=== PATIENT | female | born 1935 | race Caucasian/White ===

== ENCOUNTER → 2017-05-26 16:45 | Outpatient (CLI) | payer OTHER, SELFPAY ==
--- NOTE | 2017-05-26 16:53 | RAD_ITS ---
STUDY: X-RAY - RIGHT SHOULDER REASON FOR EXAM: Female, 82 years old. Fall down. TECHNIQUE: 4 view(s) of the shoulder. COMPARISON: February 02, 2014 FINDINGS: There is inferior and possibly anterior dislocation of the humeral head. There is degenerative arthrosis of the acromioclavicular joint without inferior osseous spur formation. Normal acromion. Normal humeral head and visualized proximal humerus. The soft tissue structures are unremarkable. Normal visualized pulmonary apex. RAD/Shoulder min 2 Views IMPRESSION: Inferior dislocation of the right humeral head. Electronically Signed: Niyah Genao MD at 18:16 EST Tel , Service support ,
== END ==
PROVIDERS: Family Provider Internal Medicine; PCP Internal Medicine; Visit Provider Internal Medicine
DX: M25.511 Pain in right shoulder (principal)
CPT/HCPCS: 73030

== ENCOUNTER 2017-05-26 19:16 | Emergency (ER) | payer OTHER, SELFPAY ==
[2017-05-26] VITALS (7 sets, daily range): BP systolic 109–199; BP diastolic 62–100; PULSE 64–73; RESP 12–24; TEMP 36.8; O2SAT 92–100; BMI 26.3
--- NOTE | 2017-05-26 20:13 | EKG12_ITS ---
Test Reason : UPPER EXTREMITY Blood Pressure : / mmHG Vent. Rate : 068 BPM Atrial Rate : 068 BPM P-R Int : 184 ms QRS Dur : 126 ms QT Int : 476 ms P-R-T Axes : 044 -11 -13 degrees QTc Int : 506 ms Sinus rhythm with occasional Premature ventricular complexes Left ventricular hypertrophy with QRS widening and repolarization abnormality Abnormal ECG Confirmed by ALANA MELISSA, FADIA ([id number]), news editor JAKOB DESAI ([id number]) on 05/29/2017 8:44:56 AM Referred By: TIKI Confirmed By:FADIA WARNER MD
--- NOTE | 2017-05-26 20:20 | ED.VISSUMM ---
- ER Visit Summary Date of Service: 05/26/17 Chief Complaint: [] Right shoulder pain History of Present Illness: The patient is a 82 F [] complaining of 2 weeks of chronic right shoulder pain and discomfort. Patient and the patient's adult daughter at the bedside report that they came in for an outpatient x-ray of the right shoulder and then were called back immediately to present to the emergency department for a right inferiorly dislocated shoulder. Patient reports she has been unable to use the shoulder for 2 weeks after she sustained a trauma and was evaluated for several other injuries but did not have her shoulder evaluated. Physical Examination: [] Right shoulder tenderness on palpation. Unable to move to the range of motion secondary to pain. Axillary nerve intact pre-and post procedure. Test Results: [] Right shoulder reduction x-rays show successful reduction of the right shoulder. Emergency Department Course and Treatment: [] Patient was provided fentanyl upon arrival for analgesia. Patient placed on the manager monitoring and placed on oxygen. Patient signed consent for procedural sedation for shoulder reduction. Patient was provided 3 mg intravenously of Versed and 50 mcg of fentanyl for procedural sedation. I used a traction countertraction maneuver with the help of nursing staff. I was able to successfully reduce the shoulder without difficulty. Patient tolerated the procedure well. She was observed for 1 hour after procedural sedation and was fully conscious and reported improvement in symptoms. Treatment Plan: [] Follow-up with orthopedic surgery. Disposition: [] Discharge, stable. Impression: [] Right shoulder dislocation Right shoulder reduction by ED physician Procedural sedation by ED physician This note was generated with Boxbee dictation software. It may contain incorrect words, spelling, and punctuation that were not noted in review of the chart prior to signing ED Disposition - Plan for ED Patient: Chief Complaint: Upper Extremity Injury Referrals: Kp Guerra MD [Primary Care Provider] -
--- NOTE | 2017-05-26 20:24 | ED.DCSUM_ITS ---
- ER Visit Summary Date of Service: 05/26/17 Chief Complaint: [] Right shoulder pain History of Present Illness: The patient is a 82 F [] complaining of 2 weeks of chronic right shoulder pain and discomfort. Patient and the patient's adult daughter at the bedside report that they came in for an outpatient x-ray of the right shoulder and then were called back immediately to present to the emergency department for a right inferiorly dislocated shoulder. Patient reports she has been unable to use the shoulder for 2 weeks after she sustained a trauma and was evaluated for several other injuries but did not have her shoulder evaluated. Physical Examination: [] Right shoulder tenderness on palpation. Unable to move to the range of motion secondary to pain. Axillary nerve intact pre-and post procedure. Test Results: [] Right shoulder reduction x-rays show successful reduction of the right shoulder. Emergency Department Course and Treatment: [] Patient was provided fentanyl upon arrival for analgesia. Patient placed on the electronic device monitor and placed on oxygen. Patient signed consent for procedural sedation for shoulder reduction. Patient was provided 3 mg intravenously of Versed and 50 mcg of fentanyl for procedural sedation. I used a traction countertraction maneuver with the help of nursing staff. I was able to successfully reduce the shoulder without difficulty. Patient tolerated the procedure well. She was observed for 1 hour after procedural sedation and was fully conscious and reported improvement in symptoms. Treatment Plan: [] Follow-up with orthopedic surgery. Disposition: [] Discharge, stable. Impression: [] Right shoulder dislocation Right shoulder reduction by ED physician Procedural sedation by ED physician This note was generated with AquaMost dictation software. It may contain incorrect words, spelling, and punctuation that were not noted in review of the chart prior to signing ED Disposition - Plan for ED Patient: Chief Complaint: Upper Extremity Injury Referrals: Kp Guerra MD [Primary Care Provider] -
[2017-05-26] MEDS: Ondansetron 4 MG/2 ML Vial IV (20:52)
[2017-05-26] MEDS: fentaNYL 100 MCG/2 ML Ampul 50 MCG IV ×2 (20:52→21:46)
[2017-05-26] MEDS: Midazolam 2 MG/2 ML Syringe 4 MG IV (21:48)
--- NOTE | 2017-05-26 22:20 | RAD_ITS ---
STUDY: X-RAY - RIGHT SHOULDER REASON FOR EXAM: Female, 82 years old. Post reduction. TECHNIQUE: 2 view(s) of the shoulder. COMPARISON: May 26, 2017 at 4:56 PM. FINDINGS: There has been successful reduction of the humerus since the prior examination. There is degenerative arthrosis of the acromioclavicular joint without inferior osseous spur formation. Normal acromion. Normal humeral head and visualized proximal humerus. The soft tissue structures are unremarkable. Normal visualized pulmonary apex. RAD/Shoulder min 2 Views IMPRESSION: Successful reduction of the humerus. Degenerative changes of the acromioclavicular joint. Electronically Signed: Niyah Genao MD at 23:17 EST Tel , Service support ,
--- NOTE | 2017-05-26 23:22 | ED.DEP ---
ED Disposition - Plan for ED Patient: Disposition: Home or Assisted Living Chief Complaint: Upper Extremity Injury Instructions: ED Dislocation Shoulder Redu Prescriptions: Hydrocodone/Acetaminophen [[place] 5-325 Tablet] 1 ea PO BID PRN PRN 7 Days #10 tab PRN Reason: Pain Referrals: Kp Guerra MD [Primary Care Provider] -
--- NOTE | 2017-05-26 23:26 | DCINST.ED_ITS ---
ED Disposition - Plan for ED Patient: Disposition: Home or Assisted Living Chief Complaint: Upper Extremity Injury Instructions: ED Dislocation Shoulder Redu Prescriptions: Hydrocodone/Acetaminophen [[place] 5-325 Tablet] 1 ea PO BID PRN PRN 7 Days #10 tab PRN Reason: Pain Referrals: Kp Guerra MD [Primary Care Provider] -
[2017-05-27 00:09] VITALS: BP 161/69; PULSE 67; RESP 23; O2SAT 95
== END 2017-05-27 00:10 | disposition home or self-care (01) ==
PROVIDERS: Emergency Provider Emergency Medicine; Family Provider Internal Medicine; PCP Internal Medicine
DX: S43.034A Inferior dislocation of right humerus, initial encounter (principal); W19.XXXA Unspecified fall, initial encounter; Y93.9 Activity, unspecified; Y92.9 Unspecified place or not applicable; K21.9 Gastro-esophageal reflux disease without esophagitis; E11.9 Type 2 diabetes mellitus without complications; I10 Essential (primary) hypertension; Z86.39 Personal history of other endocrine, nutritional and metabolic disease; I48.91 Unspecified atrial fibrillation; Z79.82 Long term (current) use of aspirin; Z79.01 Long term (current) use of anticoagulants; Z79.84 Long term (current) use of oral hypoglycemic drugs; Z79.899 Other long term (current) drug therapy
CPT/HCPCS: 23650; 73030; 93005; 96361; 96374; 96375; 96376; 99284; J7030; J7040; J2405

== ENCOUNTER → 2017-06-08 09:55 | Outpatient (CLI) | payer OTHER, SELFPAY ==
--- NOTE | 2017-06-08 09:59 | RAD_ITS ---
STUDY: X-RAY - RIGHT SHOULDER REASON FOR EXAM: Female, 82 years old. Pain following recent fall. TECHNIQUE: 2 view(s) of the shoulder. COMPARISON: Comparison is made with priors dated May 26, 2017. FINDINGS: Normal glenohumeral articulation. There is degenerative arthrosis of the acromioclavicular joint without inferior osseous spur formation. Normal acromion. Normal humeral head and visualized proximal humerus. The soft tissue structures are unremarkable. Normal visualized pulmonary apex. RAD/Shoulder min 2 Views IMPRESSION: There is no evidence of subluxation. Degenerative changes of the acromioclavicular joint. Electronically Signed: Chandra Davis MD at 14:21 EST Tel [phone], Service support ,
== END ==
PROVIDERS: Family Provider Internal Medicine; PCP Internal Medicine; Visit Provider Internal Medicine
DX: M25.511 Pain in right shoulder (principal)
CPT/HCPCS: 73030

== ENCOUNTER → 2017-07-10 11:47 | Outpatient (CLI) | payer OTHER, SELFPAY ==
--- NOTE | 2017-07-10 11:50 | RAD_ITS ---
STUDY: X-RAY - RIGHT SHOULDER REASON FOR EXAM: Female, 82 years old. Follow-up previous dislocation. TECHNIQUE: 4 view(s) of the shoulder. COMPARISON: 05/26/2017, 06/08/2017. FINDINGS: It appears there was a dislocation back in 05/26/2017, and none more recently. No acute fracture or dislocation. Normal glenohumeral articulation. Normal acromioclavicular joint. Normal acromion. There is demineralization of the humerus and visualized osseous structures. The soft tissue structures are unremarkable. Normal visualized pulmonary apex. RAD/Shoulder min 2 Views IMPRESSION: No acute fracture or dislocation. No subluxation. Demineralization. Electronically Signed: Tahir Raya MD at 8:48 EDT , Service support ,
== END ==
PROVIDERS: Family Provider Internal Medicine; PCP Internal Medicine; Visit Provider Internal Medicine
DX: S43.004A Unspecified dislocation of right shoulder joint, initial encounter (principal); X58.XXXA Exposure to other specified factors, initial encounter
CPT/HCPCS: 73030

== ENCOUNTER 2017-08-31 08:36 | Emergency (ER) | payer OTHER, SELFPAY ==
[2017-08-31 08:37] VITALS: PULSE 80; RESP 20; O2SAT 93
[2017-08-31 08:38] VITALS: BP 153/73; PULSE 79; RESP 16; TEMP 37.2; O2SAT 88; BMI 28.8
--- NOTE | 2017-08-31 08:40 | EKG12_ITS ---
Test Reason : GI BLEED Blood Pressure : / mmHG Vent. Rate : 078 BPM Atrial Rate : 078 BPM P-R Int : 192 ms QRS Dur : 112 ms QT Int : 458 ms P-R-T Axes : 024 023 -01 degrees QTc Int : 522 ms Normal sinus rhythm Incomplete left bundle branch block ST & T wave abnormality, consider anterolateral ischemia Prolonged QT Abnormal ECG Confirmed by ALANA MELISSA, FADIA ([id number]), editorial director JAKOB DESAI ([id number]) on 09/04/2017 1:54:37 PM Referred By: ROJELIO Confirmed By:FADIA WARNER MD
--- NOTE | 2017-08-31 08:48 | ED.VISSUMM ---
- ER Visit Summary Date of Service: 08/31/17 Chief Complaint: Coffee ground/bloody emesis this morning and hypoxia History of Present Illness: The patient is a 82 F who has multiple medical problems. She is on Xarelto. She states she has vomited a couple times this morning. There was blood and coffee grounds noted by patient and EMS. They reported she was unable to stand to transfer to cot. She became lightheaded. BM was yesterday and patient states stool was brown. She has history of GERD. There is no history of ulcers or GI bleed. She has not not seen a gastroneurologist recently. She states her last colonoscopy was a while ago. She reports cough for the past 2-3 days and the cough has been productive for the past 24 hours. She is a non-smoker. She states she has never smoked. She denies fever, chills night sweats. She denies any ocular, auditory or visual symptoms. She denies rhinorrhea, congestion or postnasal drainage. She denies chest pain. She did complain of mild shortness of breath. She denies any abdominal pain or back pain. She denies dysuria, frequency, urgency or hematuria. She does report bruising easily. She denies rash. There is no history of trauma. She does take an aspirin a day. Please read written note for complete detail. Physical Examination: Patient appears pale. Vital signs are remarkable for a pulse ox of 80% on room air. She is not febrile. She is not tachycardic. This may be secondary to the medication she is taking to control her paroxysmal A. fib. Head is atraumatic nor cephalic. Pupils equal round reactive. Extra muscle intact. Sclerae anicteric. Conjunctive is pale. There is blood noted on the lower lip with coffee-ground material on her clothing. Trachea is midline. There is no carotid bruit. Heart is regular with distant heart tones. Mild rales noted left base. Abdomen soft nontender. There is no palpable cell mass. She is alert oriented with a nonfocal neurologic exam. Lower extremity exam is no asymmetry, discoloration, leg vein distention, palpable cords test on the distribution of deep venous system. Test Results: EKG reveals a sinus rhythm rate of 78 with a left anterior fascicular block. There is minimal nonspecific ST-T wave changes. Chest x-ray reveals proper position of the OG. There is a significant pneumonia on the left which is new compared to x-ray dated May 06, 2017. White count is normal. There is a shift with 84 segs no bands. H&H 11.3 and 34.4. Her hemoglobin on May 06 was 11.3. BMP is marked for glucose 138 and creatinine 1.41. Lactate elevated 2.6. This most likely represents a metabolic acidosis secondary to the GI bleed and hypoxia. She does not have any sirs criteria. INR is 1.4. PTT is 39.9. Emergency Department Course and Treatment: Since patient is hypoxic chest x-ray was obtained to evaluate for pneumonia. Since she is on Xarelto PT/PTT was obtained. OG was ordered to determine if she is still actively bleeding. Orthostatics were not ordered since paramedics stated she became lightheaded and was unable to stand. Patient was informed she will need to be admitted. Based on her presentation she will either need PCU stepdown versus ICU. Will need to contact Dr. Matt Calvo to determine if you will see her in consultation for her GI bleed since there is no rn examiner communications electrician supervisor. Case was discussed with Dr. Calvo. He recommended transfer since she has bright red blood per OG and on Xarelto. 80 mg of Protonix IV push was ordered and a continuous drip. Family requested transfer to [facility]. Spoke with the transfer nurse. She was made aware patient's history, physical and results to this point. We will discuss use of [employer] with flight attendant/inflight manager. Since there is a significant infiltrate on the left and patient has not been hospitalized last 90 days will treat for Commit acquired pneumonia with Rocephin and azithromycin IV piggyback. Treatment Plan: Transfer to tertiary facility with GI coverage for active upper GI bleed Disposition: Transfer to [facility] Impression: 1. Upper GI bleed 2. Respiratory failure with hypoxia 3. Community-acquired pneumonia, left 4. Orthostatic hypotension 5. High risk medication (Xarelto induced coagulopathy) 6. Lactic acidosis 7. Hyperglycemia and type II diabetic 8. History of hypertension 9. History of nonischemic cardiomyopathy This note was generated with crealyticsation software. It may contain incorrect words, spelling, and punctuation that were not noted in review of the chart prior to signing ED Disposition - Plan for ED Patient: Chief Complaint: GI Bleed Referrals: Kp Guerra MD [Primary Care Provider] -
[2017-08-31 09:13] LABS: Absolute Lymphocyte Count 0.47 X10^3/ul (0.83-4.51); Absolute Neutrophil Count 3.9 X10^3/uL (2.0-7.7); Basophil# 0.01 X10^3/uL; Basophil% 0.2 % (0-1); Eosinophil# 0.01 X10^3/uL; Eosinophils% 0.2 % (0-5); Hematocrit 34.4 % (37-47); Hemoglobin 11.3 g/dl (12.0-15.0); Lymphocyte # 0.47 X10^3/ul (4.0); Mean Corp Hgb Conc 32.8 g/gl (32-36); Mean Corpuscular Hgb 29.1 pg (27.0-32.0); Mean Corpuscular Volume 88.7 fL (81-99); Mean Platelet Vol. 10.6 fl (6.2-12.0); Monocyte# 0.28 X10^3/uL; Monocyte% 5.9 % (0-10); Neutrophil # 3.94 X10^3/uL (2.7-7.7); Neutrophil % 83.7 % (47-70); Platelet Count 138 K/mm3 (150-450); RBC Distribution Width CV 13.9 % (11.6-14.6); RBC Distribution Width SD 44.8 fl (35.1-43.9); Red Blood Count 3.88 M/mm3 (4.2-5.4); White Blood Count 4.7 K/mm3 (4.4-11.0)
[2017-08-31 09:14] LABS: Differential Indicated SCAN CRITERIA MET; POSITIVE COUNT NO; POSITIVE DIFFERENTIAL YES; POSITIVE MORPHOLOGY NO
--- NOTE | 2017-08-31 09:18 | RAD_ITS ---
STUDY: X-RAY CHEST REASON FOR EXAM: Female, 82 years old. Hypoxia. Productive cough. TECHNIQUE: Single AP portable view of the chest. COMPARISON: Comparison is made with prior study dated October 04, 2017. FINDINGS: EKG electrodes are seen. An orogastric tube is seen with the tip in the body of the stomach. Dense infiltration in the left upper lobe and left lower lobe. The right lung is clear. There is no demonstrated pleural abnormality. Normal size heart. Normal mediastinum and joyce. Normal visualized pulmonary arteries. There is atherosclerotic calcification of the aortic arch with tortuosity. Normal visualized thoracic spine. Normal visualized ribs, clavicles, and shoulders. There is no demonstrated abnormality of the visualized soft tissue structures of the upper abdomen. RAD/Chest 1 View (Portable) IMPRESSION: Dense infiltration in the left upper and left lower lobes. Radiographic follow-up is recommended. Electronically Signed: Chandra Davis MD at 9:54 EDT Tel [phone], Service support ,
[2017-08-31 09:29] LABS: Anion Gap 10 (5-15); BUN 16 mg/dL (7-18); BUN/Creat Ratio 11.3 RATIO (10-20); Calcium,Total 8.9 mg/dL (8.5-10.1); Chloride 102 mmol/L (98-107); Creatinine, Serum 1.41 mg/dL (0.55-1.02); EST Glomerular Filtration Rate 38 mL/min (>60); Est Glom Filt Rate - Afr Amer 46 mL/min (>60); Estimated Creatinine Clearance 24.75 ml/min; Glucose 138 mg/dL (74-106); Potassium 4.2 mmol/L (3.5-5.1); Sodium Level 138 mmol/L (136-145)
[2017-08-31 09:30] LABS: Lactic Acid 2.6 mmol/L (0.4-2.0)
[2017-08-31 09:32] LABS: Differential Comment SCANNED
--- NOTE | 2017-08-31 09:34 | NURSING ---
CALLED [facility] FOR TRANSFER
[2017-08-31 09:36] LABS: International Normalized Ratio 1.4; Prothrombin Time (Protime)PT. 16.7 SECONDS (11.7-14.9)
[2017-08-31 09:37] LABS: Partial Thromboplast Time 39.9 Seconds (24.1-36.2)
[2017-08-31 09:40] VITALS: BP 148/75; PULSE 73; RESP 20; O2SAT 97
[2017-08-31 10:06] VITALS: BP 161/75; PULSE 73; RESP 20; O2SAT 96
[2017-08-31] MEDS: Ceftriaxone 1 GM/50 ML BAG IV (10:15)
--- NOTE | 2017-08-31 10:58 | CASEMGMT ---
Social Work Note In to complete initial assessment as pt is targeted as an anticipated admission. Introduced self and role at [facility]. The pt reports to live with her spouse in a one-story home with 2 entry steps and not handrails. DME consists of a walker, cane, shower chair, toilet riser and grab bars. DME obtained from [facility]. Confirms that her PCP is Dr. Guerra and her preferred pharmacy is [facility] in [place]. Pt reports to have advanced directives and her HCPOA is her daughter, Chana. Does not anticipate any discharge needs at this time. Pt to be transferred to [place]. Maribel Mills, MECHANICAL SYSTEMS ENGINEER, INFORMATION MANAGEMENT SPECIALIST
[2017-08-31 11:01] VITALS: BP 152/61; PULSE 71; RESP 22; TEMP 36.8; O2SAT 97
--- NOTE | 2017-08-31 11:03 | NURSING ---
[facility] ETA IS FROM [place]
[2017-08-31 13:00] LABS: Reflex Lactate? Y
== END 2017-08-31 12:04 | disposition short-term general hospital (02) ==
LOC: ED 09:02
PROVIDERS: Emergency Provider Emergency Medicine; Family Provider Internal Medicine; PCP Internal Medicine
DX: K92.0 Hematemesis (principal); J96.91 Respiratory failure, unspecified with hypoxia; J18.9 Pneumonia, unspecified organism; I95.1 Orthostatic hypotension; R79.1 Abnormal coagulation profile; Z79.01 Long term (current) use of anticoagulants; E87.2 Acidosis; E11.65 Type 2 diabetes mellitus with hyperglycemia; I42.8 Other cardiomyopathies; K21.9 Gastro-esophageal reflux disease without esophagitis; I48.0 Paroxysmal atrial fibrillation; I44.4 Left anterior fascicular block; E11.22 Type 2 diabetes mellitus with diabetic chronic kidney disease; I13.2 Hypertensive heart and chronic kidney disease with heart failure and with stage 5 chronic kidney disease, or end stage renal disease; N18.6 End stage renal disease; Z86.39 Personal history of other endocrine, nutritional and metabolic disease; Z79.82 Long term (current) use of aspirin; Z79.84 Long term (current) use of oral hypoglycemic drugs; Z79.899 Other long term (current) drug therapy
CPT/HCPCS: 71045; 80048; 83605; 85025; 85610; 85730; 87040; 93005; 96361; 96365; 96367; 96368; 99285; J7030; J7040; A4216; J3490

== ENCOUNTER → 2017-10-05 09:43 | Outpatient (CLI) | payer OTHER, SELFPAY ==
[2017-10-05 12:24] LABS: Absolute Lymphocyte Count 1.72 X10^3/ul (0.83-4.51); Absolute Neutrophil Count 2.9 X10^3/uL (2.0-7.7); Basophil# 0.02 X10^3/uL; Basophil% 0.4 % (0-1); Eosinophil# 0.19 X10^3/uL; Eosinophils% 3.6 % (0-5); Hemoglobin 9.6 g/dl (12.0-15.0); Lymphocyte # 1.72 X10^3/ul (4.0); Mean Corpuscular Hgb 27.3 pg (27.0-32.0); Mean Corpuscular Volume 88.1 fL (81-99); Mean Platelet Vol. 11.3 fl (6.2-12.0); Monocyte# 0.38 X10^3/uL; Monocyte% 7.3 % (0-10); Neutrophil # 2.89 X10^3/uL (2.7-7.7); Neutrophil % 55.5 % (47-70); Platelet Count 166 K/mm3 (150-450); RBC Distribution Width CV 14.5 % (11.6-14.6); RBC Distribution Width SD 45.6 fl (35.1-43.9); Red Blood Count 3.52 M/mm3 (4.2-5.4); White Blood Count 5.2 K/mm3 (4.4-11.0)
[2017-10-05 12:28] LABS: POSITIVE COUNT NO; POSITIVE DIFFERENTIAL NO; POSITIVE MORPHOLOGY NO
[2017-10-05 12:31] LABS: Anion Gap 10 (5-15); BUN 11 mg/dL (7-18); Calcium,Total 9.3 mg/dL (8.5-10.1); Chloride 104 mmol/L (98-107); Creatinine, Serum 1.22 mg/dL (0.55-1.02); EST Glomerular Filtration Rate 45 mL/min (>60); Est Glom Filt Rate - Afr Amer 54 mL/min (>60); Glucose 134 mg/dL (74-106); Potassium 4.8 mmol/L (3.5-5.1); Sodium Level 140 mmol/L (136-145)
== END ==
PROVIDERS: Family Provider Internal Medicine; PCP Internal Medicine; Visit Provider Internal Medicine
DX: J18.9 Pneumonia, unspecified organism (principal)
CPT/HCPCS: 36415; 80048; 85025

== ENCOUNTER → 2017-10-19 10:16 | Outpatient (CLI) | payer OTHER, SELFPAY ==
--- NOTE | 2017-10-19 10:19 | RAD_ITS ---
STUDY: X-RAY CHEST REASON FOR EXAM: Female, 82 years old. Cough TECHNIQUE: Frontal and lateral views of the chest were obtained. COMPARISON: August 31, 2017 FINDINGS: The lungs are underaerated. There are no focal airspace opacities. There is no demonstrated pleural abnormality. There is moderate enlargement of the cardiac silhouette. The mediastinum and hilar regions are unremarkable. Normal visualized pulmonary arteries. There is atherosclerotic calcification of the thoracic aorta. There are diffuse degenerative changes of the visualized spine. The visualized ribs, clavicles, and shoulders are unremarkable. There is no demonstrated abnormality of the visualized upper abdomen. RAD/Chest PA and Lateral IMPRESSION: There is no evidence of focal consolidation or pleural effusion. There has been resolution of the previously seen left lung pneumonia. There is stable moderate enlargement of the cardiac silhouette without edema. Electronically Signed: Betsy Garcia MD at 0:08 EDT Tel Direct: [phone], Service support ,
== END ==
PROVIDERS: Family Provider Internal Medicine; PCP Internal Medicine; Visit Provider Internal Medicine
DX: J18.9 Pneumonia, unspecified organism (principal)
CPT/HCPCS: 71046

== ENCOUNTER → 2017-11-02 09:58 | Outpatient (CLI) | payer OTHER, SELFPAY ==
--- NOTE | 2017-11-02 10:00 | RAD_ITS ---
STUDY: X-RAY CHEST REASON FOR EXAM: Female, 82 years old. Cough and shortness of breath. TECHNIQUE: PA and lateral views of the chest. COMPARISON: Comparison is made with prior study dated October 19, 2017. FINDINGS: Small right pleural effusion with underlying right basilar atelectasis and/or infiltration. Blunting of the left costophrenic angle. There is moderate cardiac enlargement. Normal mediastinum and joyce. Normal visualized pulmonary arteries. There is atherosclerotic calcification of the aortic arch with tortuosity. There is demineralization of the osseous structures. Normal visualized ribs, clavicles, and shoulders. There is no demonstrated abnormality of the visualized soft tissue structures of the upper abdomen. RAD/Chest PA and Lateral IMPRESSION: Small right pleural effusion with underlying infiltration and/or atelectasis. Blunting of left costophrenic angle. Electronically Signed: Chandra Davis MD at 10:28 EDT Tel [phone], Service support ,
== END ==
PROVIDERS: Family Provider Internal Medicine; PCP Internal Medicine; Visit Provider Physician Assistant Surgical
DX: R05 Cough (principal)
CPT/HCPCS: 71046

== ENCOUNTER → 2018-01-07 10:38 | Outpatient (CLI) | payer OTHER, SELFPAY ==
[2018-01-07 12:19] LABS: Absolute Lymphocyte Count 1.37 X10^3/ul (0.83-4.51); Absolute Neutrophil Count 3.2 X10^3/uL (2.0-7.7); Basophil# 0.02 X10^3/uL; Basophil% 0.4 % (0-1); Eosinophil# 0.14 X10^3/uL; Eosinophils% 2.7 % (0-5); Hematocrit 36.9 % (37-47); Lymphocyte # 1.37 X10^3/ul (4.0); Lymphocyte % 26.5 % (19-41); Mean Corp Hgb Conc 32.5 g/gl (32-36); Mean Corpuscular Hgb 28.4 pg (27.0-32.0); Mean Corpuscular Volume 87.4 fL (81-99); Mean Platelet Vol. 11.5 fl (6.2-12.0); Monocyte# 0.46 X10^3/uL; Monocyte% 8.9 % (0-10); Neutrophil # 3.17 X10^3/uL (2.7-7.7); Neutrophil % 61.3 % (47-70); Platelet Count 152 K/mm3 (150-450); RBC Distribution Width CV 17.7 % (11.6-14.6); RBC Distribution Width SD 56.8 fl (35.1-43.9); Red Blood Count 4.22 M/mm3 (4.2-5.4); White Blood Count 5.2 K/mm3 (4.4-11.0)
[2018-01-07 12:25] LABS: POSITIVE COUNT NO; POSITIVE DIFFERENTIAL NO; POSITIVE MORPHOLOGY NO
[2018-01-07 12:26] LABS: Anion Gap 8 (5-15); BUN 20 mg/dL (7-18); BUN/Creat Ratio 17.4 RATIO (10-20); Calcium,Total 9.3 mg/dL (8.5-10.1); Chloride 104 mmol/L (98-107); Creatinine, Serum 1.15 mg/dL (0.55-1.02); EST Glomerular Filtration Rate 48 mL/min (>60); Est Glom Filt Rate - Afr Amer 58 mL/min (>60); Glucose 133 mg/dL (74-106); Potassium 4.6 mmol/L (3.5-5.1); Sodium Level 138 mmol/L (136-145)
[2018-01-07 12:33] LABS: Hemoglobin A1c 6.3 % (4.2-6.3)
== END ==
PROVIDERS: Family Provider Internal Medicine; PCP Internal Medicine; Visit Provider Internal Medicine
DX: E11.22 Type 2 diabetes mellitus with diabetic chronic kidney disease (principal); N18.3 Chronic kidney disease, stage 3 (moderate); D64.9 Anemia, unspecified
CPT/HCPCS: 36415; 80048; 83036; 85025

== ENCOUNTER → 2018-06-11 10:46 | Outpatient (CLI) | payer OTHER, SELFPAY ==
[2018-06-11 10:03] VITALS: BMI 28.8
[2018-06-11 12:12] LABS: Absolute Lymphocyte Count 1.65 X10^3/ul (0.83-4.51); Absolute Neutrophil Count 3.8 X10^3/uL (2.0-7.7); Basophil# 0.02 X10^3/uL; Basophil% 0.3 % (0-1); Eosinophil# 0.13 X10^3/uL; Eosinophils% 2.2 % (0-5); Hematocrit 37.4 % (37-47); Hemoglobin 12.2 g/dl (12.0-15.0); Lymphocyte # 1.65 X10^3/ul (4.0); Lymphocyte % 27.4 % (19-41); Mean Corp Hgb Conc 32.6 g/gl (32-36); Mean Corpuscular Hgb 30.5 pg (27.0-32.0); Mean Corpuscular Volume 93.5 fL (81-99); Monocyte# 0.44 X10^3/uL; Monocyte% 7.3 % (0-10); Neutrophil # 3.77 X10^3/uL (2.7-7.7); Neutrophil % 62.6 % (47-70); POSITIVE COUNT NO; POSITIVE DIFFERENTIAL NO; POSITIVE MORPHOLOGY NO; Platelet Count 129 K/mm3 (150-450); RBC Distribution Width CV 13.5 % (11.6-14.6); RBC Distribution Width SD 45.1 fl (35.1-43.9)
[2018-06-11 12:27] LABS: Anion Gap 9 (5-15); BUN 16 mg/dL (7-18); BUN/Creat Ratio 12.4 RATIO (10-20); Calcium,Total 9.5 mg/dL (8.5-10.1); Chloride 105 mmol/L (98-107); Creatinine, Serum 1.29 mg/dL (0.55-1.02); EST Glomerular Filtration Rate 42 mL/min (>60); Est Glom Filt Rate - Afr Amer 51 mL/min (>60); Glucose 168 mg/dL (74-106); Sodium Level 141 mmol/L (136-145)
== END ==
PROVIDERS: Family Provider Internal Medicine; PCP Internal Medicine; Visit Provider Internal Medicine
DX: E11.9 Type 2 diabetes mellitus without complications (principal); D64.9 Anemia, unspecified; I10 Essential (primary) hypertension
CPT/HCPCS: 36415; 80048; 83036; 85025

== ENCOUNTER → 2019-03-11 10:40 | Outpatient (CLI) | payer OTHER, SELFPAY ==
[2019-03-11 10:08] VITALS: BMI 29.4
[2019-03-11 12:34] LABS: Absolute Lymphocyte Count 1.65 X10^3/uL (0.83-4.51); Basophil# 0.03 X10^3/uL; Basophil% 0.6 % (0-1); Eosinophil# 0.21 X10^3/uL; Hematocrit 42.2 % (37-47); Hemoglobin 13.6 g/dL (12.0-15.0); Lymphocyte # 1.65 X10^3/ul (4.0); Lymphocyte % 31.5 % (19-41); Mean Corp Hgb Conc 32.2 g/dL (32-36); Mean Corpuscular Hgb 29.3 pg (27.0-32.0); Mean Corpuscular Volume 90.9 fL (81-99); Mean Platelet Vol. 11.3 fl (6.2-12.0); Monocyte# 0.32 X10^3/uL; Monocyte% 6.1 % (0-10); NRBC Flagged by Analyzer 0 % (0-5); Neutrophil # 3.01 X10^3/uL (2.7-7.7); Neutrophil % 57.6 % (47-70); Platelet Count 165 K/mm3 (150-450); RBC Distribution Width CV 13.3 % (11.6-14.6); RBC Distribution Width SD 45.1 fl (35.1-43.9); Red Blood Count 4.64 M/mm3 (4.2-5.4); White Blood Count 5.2 K/mm3 (4.4-11.0)
[2019-03-11 12:40] LABS: Anion Gap 7 (5-15); BUN 15 mg/dL (7-18); BUN/Creat Ratio 12.3 RATIO (10-20); Calcium,Total 9.5 mg/dL (8.5-10.1); Chloride 107 mmol/L (98-107); Creatinine, Serum 1.22 mg/dL (0.55-1.02); EST Glomerular Filtration Rate 45 mL/min (>60); Est Glom Filt Rate - Afr Amer 54 mL/min (>60); Glucose 177 mg/dL (74-106); Potassium 4.9 mmol/L (3.5-5.1); Sodium Level 138 mmol/L (136-145)
== END ==
PROVIDERS: Family Provider Internal Medicine; PCP Internal Medicine; Visit Provider Internal Medicine
DX: E11.9 Type 2 diabetes mellitus without complications (principal); I10 Essential (primary) hypertension; D64.9 Anemia, unspecified
CPT/HCPCS: 36415; 80048; 85025

== ENCOUNTER → 2019-03-28 09:45 | Outpatient (CLI) | payer OTHER, SELFPAY ==
[2019-03-28 09:32] VITALS: BMI 29.4
--- NOTE | 2019-03-28 09:47 | RAD_ITS ---
STUDY: X-RAY - LEFT WRIST REASON FOR EXAM: Female, 84 years old. Left wrist pain radiating to thumb TECHNIQUE: 3 view(s) of the wrist were obtained. COMPARISON: None. FINDINGS: There is demineralization of the radius and ulna. Normal radiocarpal articulation. Normal distal radioulnar articulation. Normal carpal bones. There are degenerative changes with joint space narrowing of the greater multangular navicular joint. There are moderately severe degenerative changes with joint space narrowing of the first metacarpal greater multangular joint. Normal second through fifth carpometacarpal articulations. Normal visualized metacarpal bones. There is calcification in the region of the triradiate cartilage most typically associated with calcium pyrophosphate deposition disease. Arterial calcifications are noted in the distal forearm and wrist. RAD/Wrist min 3 Views IMPRESSION: Generalized osteopenia. Degenerative changes as detailed above. Electronically Signed: Jarrod Garcia MD at 18:36 EST , Service support ,
== END ==
PROVIDERS: Family Provider Internal Medicine; PCP Internal Medicine; Referring Provider Orthopaedic Surgery; Visit Provider Orthopaedic Surgery
DX: M25.532 Pain in left wrist (principal)
CPT/HCPCS: 73110

== ENCOUNTER → 2019-12-23 10:29 | Outpatient (CLI) | payer OTHER, SELFPAY ==
[2019-12-23 10:03] VITALS: BMI 29.4
[2019-12-23 11:58] LABS: Absolute Lymphocyte Count 1.66 X10^3/uL (0.83-4.51); Absolute Neutrophil Count 5.5 X10^3/uL (2.0-7.7); Basophil# 0.03 X10^3/uL; Basophil% 0.4 % (0-1); Eosinophil# 0.12 X10^3/uL; Eosinophils% 1.6 % (0-5); Hematocrit 36.8 % (37-47); Hemoglobin 12.3 g/dL (12.0-15.0); Lymphocyte # 1.66 X10^3/ul (4.0); Lymphocyte % 21.6 % (19-41); Mean Corp Hgb Conc 33.4 g/dL (32-36); Mean Corpuscular Hgb 30.8 pg (27.0-32.0); Mean Platelet Vol. 11.4 fl (6.2-12.0); Monocyte# 0.37 X10^3/uL; Monocyte% 4.8 % (0-10); NRBC Flagged by Analyzer 0 % (0-5); Neutrophil # 5.45 X10^3/uL (2.7-7.7); Neutrophil % 71.1 % (47-70); Platelet Count 194 K/mm3 (150-450); RBC Distribution Width CV 13.2 % (11.6-14.6); RBC Distribution Width SD 43.8 fl (35.1-43.9); White Blood Count 7.7 K/mm3 (4.4-11.0)
[2019-12-23 12:23] LABS: ALB/GLOB Ratio 0.9 RATIO (0.9-2.4); AST(SGOT) 23 U/L (15-37); Alanine Aminotransfer ALT/SGPT 19 U/L (13-56); Albumin, Serum 4.1 g/dL (3.2-5.0); Alkaline Phosphatase 106 U/L (45-117); Anion Gap 6 (5-15); BUN 18 mg/dL (7-18); Calcium,Total 8.9 mg/dL (8.5-10.1); Chloride 104 mmol/L (98-107); Cholesterol 232 mg/dL (200); Creatinine, Serum 1.29 mg/dL (0.55-1.02); EST Glomerular Filtration Rate 42 mL/min (>60); Est Glom Filt Rate - Afr Amer 51 mL/min (>60); Globulin 4.4 g/dL (2.2-4.2); Glucose 136 mg/dL (74-106); High Density Lipoprotein 49 mg/dL; Potassium 4.7 mmol/L (3.5-5.1); Protein, Total 8.5 g/dL (6.4-8.2); Sodium Level 136 mmol/L (136-145); T4 Free Direct 1.15 ng/dL (0.76-1.46); Thyroid Stim Hormone (TSH) 3.27 uIU/mL (0.358-3.74); Triglycerides 225 mg/dL; Very Low Density Lipoprotein 45 mg/dL (5-40)
== END ==
PROVIDERS: PCP Internal Medicine; Referring Provider Internal Medicine; Visit Provider Internal Medicine
DX: I10 Essential (primary) hypertension (principal); Z13.29 Encounter for screening for other suspected endocrine disorder; E78.5 Hyperlipidemia, unspecified
CPT/HCPCS: 36415; 80053; 80061; 84439; 84443; 85025

== ENCOUNTER → 2019-12-26 09:28 | Outpatient (CLI) | payer OTHER, SELFPAY ==
[2019-12-23 10:03] VITALS: BMI 29.4
--- NOTE | 2019-12-26 09:30 | RAD_ITS ---
STUDY: X-RAY CHEST REASON FOR EXAM: Female, 84 years old. AFIB, WEAKNESS TECHNIQUE: PA and lateral views of the chest. COMPARISON: Comparison is made with prior study dated 11/02/2017. FINDINGS: There is elevation of the right hemidiaphragm. There is no demonstrated pleural abnormality. Normal size heart. Calcified bilateral hilar lymph nodes. Normal visualized pulmonary arteries. There is atherosclerotic calcification of the aortic arch with tortuosity. Normal visualized thoracic spine. Normal visualized ribs, clavicles, and shoulders. There is no demonstrated abnormality of the visualized soft tissue structures of the upper abdomen. RAD/Chest PA and Lateral IMPRESSION: No acute abnormality is seen. Electronically Signed: Chandra Davis, at 12:39 EDT , Service support ,
== END ==
PROVIDERS: PCP Internal Medicine; Referring Provider Internal Medicine; Visit Provider Internal Medicine
DX: I48.91 Unspecified atrial fibrillation (principal)
CPT/HCPCS: 71046

== ENCOUNTER → 2020-06-22 10:31 | Outpatient (CLI) | payer OTHER, SELFPAY ==
[2019-12-23 10:03] VITALS: BMI 29.4
[2020-06-22 12:13] LABS: Absolute Lymphocyte Count 2.35 X10^3/uL (0.83-4.51); Absolute Neutrophil Count 3.7 X10^3/uL (2.0-7.7); Basophil# 0.03 X10^3/uL; Basophil% 0.5 % (0-1); Eosinophil# 0.17 X10^3/uL; Eosinophils% 2.6 % (0-5); Hematocrit 40.3 % (37-47); Lymphocyte # 2.35 X10^3/ul (4.0); Lymphocyte % 35.8 % (19-41); Mean Corp Hgb Conc 32.3 g/dL (32-36); Mean Corpuscular Hgb 29.7 pg (27.0-32.0); Mean Corpuscular Volume 92.2 fL (81-99); Mean Platelet Vol. 11.3 fl (6.2-12.0); Monocyte# 0.31 X10^3/uL; Monocyte% 4.7 % (0-10); NRBC Flagged by Analyzer 0 % (0-5); Neutrophil % 56.2 % (47-70); Platelet Count 175 K/mm3 (150-450); RBC Distribution Width CV 13.4 % (11.6-14.6); RBC Distribution Width SD 45.4 fl (35.1-43.9); Red Blood Count 4.37 M/mm3 (4.2-5.4); White Blood Count 6.6 K/mm3 (4.4-11.0)
[2020-06-22 12:39] LABS: Anion Gap 8 (5-15); BUN 15 mg/dL (7-18); BUN/Creat Ratio 12.2 RATIO (10-20); Calcium,Total 9.6 mg/dL (8.5-10.1); Chloride 105 mmol/L (98-107); Creatinine, Serum 1.23 mg/dL (0.55-1.02); EST Glomerular Filtration Rate 44 mL/min (>60); Est Glom Filt Rate - Afr Amer 53 mL/min (>60); Glucose 157 mg/dL (74-106); Potassium 4.7 mmol/L (3.5-5.1); Sodium Level 137 mmol/L (136-145)
== END ==
PROVIDERS: PCP Internal Medicine; Visit Provider Internal Medicine
DX: I48.91 Unspecified atrial fibrillation (principal); I10 Essential (primary) hypertension
CPT/HCPCS: 36415; 80048; 85025

== ENCOUNTER → 2020-12-14 10:09 | Outpatient (CLI) | payer OTHER, SELFPAY ==
--- NOTE | 2020-12-14 10:11 | RAD_ITS ---
STUDY: X-RAY CHEST REASON FOR EXAM: Female, 85 years old. Cough TECHNIQUE: PA and lateral views of the chest. COMPARISON: Comparison is made with prior examination of 12/26/2019. FINDINGS: There is elevation of the right hemidiaphragm. The lungs are clear. There is no demonstrated pleural abnormality. Normal size heart. Calcified bilateral hilar lymph nodes. Normal visualized pulmonary arteries. There is atherosclerotic calcification of the aortic arch with tortuosity. There is demineralization of the osseous structures. Normal visualized ribs, clavicles, and shoulders. There is no demonstrated abnormality of the visualized soft tissue structures of the upper abdomen. RAD/Chest PA and Lateral IMPRESSION: Stable elevation of the right hemidiaphragm. The lungs are clear. Electronically Signed: Chandra Davis MD at 10:17 EDT , Service support ,
== END ==
PROVIDERS: PCP Internal Medicine; Referring Provider Nurse Practitioner Family; Visit Provider Nurse Practitioner Family
DX: R05 Cough (principal)
CPT/HCPCS: 71046

== ENCOUNTER → 2021-01-03 10:33 | Outpatient (CLI) | payer OTHER, SELFPAY ==
[2021-01-03 12:08] LABS: Absolute Lymphocyte Count 1.82 X10^3/uL (0.83-4.51); Absolute Neutrophil Count 3.3 X10^3/uL (2.0-7.7); Basophil# 0.03 X10^3/uL; Basophil% 0.5 % (0-1); Eosinophil# 0.15 X10^3/uL; Eosinophils% 2.7 % (0-5); Hematocrit 38.1 % (37-47); Hemoglobin 12.5 g/dL (12.0-15.0); Lymphocyte # 1.82 X10^3/ul (0.83-4.51); Lymphocyte % 32.6 % (19-41); Mean Corp Hgb Conc 32.8 g/dL (32-36); Mean Corpuscular Hgb 30.2 pg (27.0-32.0); Monocyte% 5.4 % (0-10); NRBC Flagged by Analyzer 0 % (0-5); Neutrophil # 3.26 X10^3/uL (2.7-7.7); Neutrophil % 58.4 % (47-70); Platelet Count 166 K/mm3 (150-450); RBC Distribution Width CV 13.6 % (11.6-14.6); Red Blood Count 4.14 M/mm3 (4.2-5.4); White Blood Count 5.6 K/mm3 (4.4-11.0)
[2021-01-03 12:19] LABS: AST(SGOT) 20 U/L (15-37); Alanine Aminotransfer ALT/SGPT 16 U/L (13-56); Albumin, Serum 4.1 g/dL (3.2-5.0); Alkaline Phosphatase 91 U/L (45-117); Anion Gap 8 (5-15); BUN 16 mg/dL (7-18); BUN/Creat Ratio 13.6 RATIO (10-20); Calcium,Total 9.1 mg/dL (8.5-10.1); Chloride 104 mmol/L (98-107); Cholesterol 256 mg/dL (200); Creatinine, Serum 1.18 mg/dL (0.55-1.02); EST Glomerular Filtration Rate 46 mL/min (>60); Est Glom Filt Rate - Afr Amer 56 mL/min (>60); Globulin 4.2 g/dL (2.2-4.2); Glucose 148 mg/dL (74-106); High Density Lipoprotein 48 mg/dL; Potassium 4.6 mmol/L (3.5-5.1); Protein, Total 8.3 g/dL (6.4-8.2); Sodium Level 136 mmol/L (136-145); Triglycerides 229 mg/dL; Very Low Density Lipoprotein 46 mg/dL (5-40)
== END ==
PROVIDERS: PCP Internal Medicine; Visit Provider Internal Medicine
DX: E78.5 Hyperlipidemia, unspecified (principal); I10 Essential (primary) hypertension; I48.91 Unspecified atrial fibrillation
CPT/HCPCS: 36415; 80053; 80061; 85025

== ENCOUNTER 2021-07-05 10:20 | Outpatient (CLI) | payer OTHER, SELFPAY ==
[2021-07-05 12:05] LABS: Absolute Lymphocyte Count 2.07 X10^3/uL (0.83-4.51); Absolute Neutrophil Count 3.4 X10^3/uL (2.0-7.7); Basophil# 0.03 X10^3/uL; Basophil% 0.5 % (0-1); Eosinophil# 0.15 X10^3/uL; Eosinophils% 2.5 % (0-5); Hematocrit 38.3 % (37-47); Hemoglobin 12.3 g/dL (12.0-15.0); Lymphocyte # 2.07 X10^3/ul (0.83-4.51); Lymphocyte % 34.4 % (19-41); Mean Corp Hgb Conc 32.1 g/dL (32-36); Mean Corpuscular Hgb 29.5 pg (27.0-32.0); Mean Corpuscular Volume 91.8 fL (81-99); Mean Platelet Vol. 10.7 fl (6.2-12.0); Monocyte# 0.34 X10^3/uL; Monocyte% 5.7 % (0-10); NRBC Flagged by Analyzer 0 % (0-5); Neutrophil % 56.6 % (47-70); Platelet Count 163 K/mm3 (150-450); RBC Distribution Width CV 13.3 % (11.6-14.6); RBC Distribution Width SD 45.1 fl (35.1-43.9); Red Blood Count 4.17 M/mm3 (4.2-5.4)
[2021-07-05 12:25] LABS: Anion Gap 5 (5-15); BUN 14 mg/dL (7-18); BUN/Creat Ratio 9.9 RATIO (10-20); Calcium,Total 9.9 mg/dL (8.5-10.1); Chloride 106 mmol/L (98-107); Creatinine, Serum 1.41 mg/dL (0.55-1.02); EST Glomerular Filtration Rate 38 mL/min (>60); Est Glom Filt Rate - Afr Amer 46 mL/min (>60); Glucose 161 mg/dL (74-106); Potassium 4.5 mmol/L (3.5-5.1); Sodium Level 137 mmol/L (136-145)
== END 2021-07-05 23:59 | disposition home or self-care (01) ==
LOC: BIMLAB 10:21
PROVIDERS: PCP Internal Medicine; Referring Provider Internal Medicine; Visit Provider Internal Medicine
DX: I10 Essential (primary) hypertension (principal)
CPT/HCPCS: 36415; 80048; 85025

== ENCOUNTER 2021-08-30 10:22 | Emergency (ER) | payer OTHER, SELFPAY ==
[2021-08-30 10:23] VITALS: BP 128/78; PULSE 73; RESP 14; TEMP 36.2; O2SAT 100; BMI 28.1
--- NOTE | 2021-08-30 10:37 | EKG12_ITS ---
Test Reason : Blood Pressure : / mmHG Vent. Rate : 071 BPM Atrial Rate : 071 BPM P-R Int : 216 ms QRS Dur : 096 ms QT Int : 398 ms P-R-T Axes : 044 -09 -14 degrees QTc Int : 432 ms Sinus rhythm with 1st degree A-V block ST & T wave abnormality, consider anterior ischemia Abnormal ECG Confirmed by ALANA MELISSA, FADIA ([id number]), editorial manager JORGE KELLEY ([id number]) on 08/31/2021 12:52:23 PM Referred By: SWATHI Confirmed By:FADIA WARNER MD
--- NOTE | 2021-08-30 10:37 | CT_ITS ---
EXAM: CT HEAD WITHOUT INTRAVENOUS CONTRAST CLINICAL INDICATION: trauma TECHNIQUE: Multiple axial images were obtained of the head without intravenous contrast. This CT exam was performed using one or more of the following dose reduction techniques: automated exposure control, adjustment of the mA and/or kV according to patient size, and/or use of iterative reconstruction technique. This report was created using [employer] report generation technology. COMPARISON: 05/06/2017 FINDINGS: BRAIN AND EXTRA-AXIAL SPACES: Areas of diminished white matter density noted within both cerebral hemispheres suggestive of chronic microvascular change. No intra- or extra-axial hemorrhage. No evidence of acute infarct. No intracranial mass or mass effect. There is preservation of the solorzano/white matter interface. Posterior fossa structures are unremarkable. Ventricles are appropriate for age. No hydrocephalus. Basal cisterns are patent. BONES/JOINTS: Unremarkable. No discrete lytic or blastic abnormalities. SINUSES: Unremarkable as visualized. Clear. MASTOID AIR CELLS: Unremarkable. Clear. ORBITS: Visualized globes, extraocular muscles, optic nerves and retrobulbar fat appear unremarkable. CT/Brain/Head without Contrast IMPRESSION: 1. No acute abnormality. 2. Stable senescent changes. Electronically Signed: Guanako Rashid MD at 11:28 EDT ,
--- NOTE | 2021-08-30 10:37 | CT_ITS ---
EXAM: CT LUMBAR SPINE WITHOUT INTRAVENOUS CONTRAST CLINICAL INDICATION: trauma -- Include sacrum please TECHNIQUE: Helically acquired images were obtained of the lumbar spine without intravenous contrast. 2D reformats were reviewed. This CT exam was performed using one or more of the following dose reduction techniques: automated exposure control, adjustment of the mA and/or kV according to patient size, and/or use of iterative reconstruction technique. This report was created using [employer] report [employer] technology. COMPARISON: None. FINDINGS: VERTEBRAE: Mild superior endplate deformity of the T12 vertebral body suggestive of remote injury. Mild anterior listhesis of L4 and L5 related to the underlying degeneration. SACRUM/COCCYX: Cortical defect noted to involve the midportion of the sacrum on the sagittal reformatted image consistent with a nondisplaced acute fracture. DISCS/SPINAL CANAL/NEURAL FORAMINA: Prominent disc space narrowing, endplate sclerosis and vertebral body hypertrophy noted at T12-L1. Prominent disc degeneration also noted at L4-5 and L5-S1. Multilevel facet arthropathy. Tiyv-jy-bwjiejjl spinal stenosis noted at the L3-4 level related to facet arthropathy and posterior ligamentous redundancy. Similar changes are noted at the L4-5 level. VASCULATURE: Visualized abdominal aorta is not dilated. LYMPH NODES: Unremarkable. No retroperitoneal adenopathy. CT/Spine Lumbar without Contrast IMPRESSION: 1. Acute nondisplaced fracture of the sacrum. 2. Multilevel disc and facet degenerative change. 3. L3-4 and L4-5 spinal stenosis related to facet arthropathy and posterior ligamentous redundancy. Electronically Signed: Guanako Rashid MD at 11:35 EDT ,
--- NOTE | 2021-08-30 11:22 | EX.ED.GENINJ ---
HPI History of Present Illness Chief Complaint: Fall Informant: patient and family Narrative Narrative: Patient has 2 issues today. Primary complaint per patient is that she had a mechanical slip and fall in the bathroom today. She was reaching to get something into the closet next of the tub. She missed stepped and fell landing her buttocks on and in the tub. She did not hit her head. She did not lose consciousness. This was a mechanical fall and not syncope. She has pain really down in the count of the sacral area. But she is able to get up and walk around. She got out of the tub. She talked to her daughter. She walked out of the house to her car and then from the car in here. No other injury. The patient's daughter also states that she has noted occasional confusion over the last 5 or so days. Sometimes her mother is fine sometimes she seems a little bit more forgetful regarding medications and eating. Her mother does live alone and independently. She is generally very good. At this moment she is doing well. The daughter is not sure if this is just a process of aging or might be something acute. There is been no focal numbness tingling weakness. No visual disturbance. Sometimes the speech seems a little bit slow but there have been no difficulties with understanding or processing. Of note, the patient is already on Xarelto for history of atrial fibrillation. [facility] Medical History Arthritis Atrial fibrillation Atrial flutter Chronic systolic heart failure Cough Difficulty balancing Fatigue Flu vaccine need GERD (gastroesophageal reflux disease) HLD (hyperlipidemia) HTN (hypertension) Limb weakness Non-ischemic cardiomyopathy Orthostatic hypotension Paroxysmal atrial fibrillation Secondary pulmonary arterial hypertension SOB (shortness of breath) T2DM (type 2 diabetes mellitus) Home Medications amiodarone 200 mg tablet 200 mg PO DAILY tab 02/12/18 [History Last Taken Unknown] blood sugar diagnostic #100 ea 09/09/19 [Rx Last Taken Unknown] blood-glucose meter #1 ea 09/09/19 [Rx Last Taken Unknown] lancets 28 gauge #200 ea 09/09/19 [Rx Last Taken Unknown] losartan 50 mg tablet 50 mg PO DAILY #90 tab 08/30/20 [Rx Last Taken Unknown] ergocalciferol (vitamin D2) 1,250 mcg (50,000 unit) capsule 50,000 unit PO QMONTH #7 cap 09/27/20 [Rx Last Taken Unknown] metformin 1,000 mg tablet,extended release 24hr 1,000 mg PO QHS #90 tab 09/27/20 [Rx Last Taken Unknown] ferrous sulfate 325 mg (65 mg iron) tablet 325 mg PO QDAY #90 tab 12/10/20 [Rx Last Taken Unknown] sertraline 50 mg tablet 50 mg PO DAILY #90 tab 02/22/21 [Rx Last Taken Unknown] amlodipine 10 mg tablet 10 mg PO DAILY #90 tab 03/22/21 [Rx Last Taken Unknown] carvedilol 12.5 mg tablet 12.5 mg PO BID #180 tab 03/22/21 [Rx Last Taken Unknown] rivaroxaban 15 mg tablet 15 mg PO DAILY@0600 #90 tab 03/31/21 [Rx Last Taken Unknown] lansoprazole 30 mg capsule,delayed release 30 mg PO DAILY #90 cap 06/24/21 [Rx Last Taken Unknown] tramadol [Ultram] 50 mg PO Q6H PRN 3 Days #10 tab 08/30/21 [Rx Last Taken Unknown] Allergy/AdvReac Type Severity Reaction Status Date / Time No Known Allergies Allergy Verified 08/30/21 10:22 Family History Mother CVA (cerebral vascular accident) Father Myocardial infarction suspected [place] Sister Diabetes Heart disease Brother Cancer prostate Social History Smoking Status: Never smoker alcohol intake: never substance use type: does not use what type of physical activity do you participate in: none ROS ROS ED Constitutional Constitutional ED: Denies chills, fever(s) or sweats Eyes Eyes: Denies blurry vision or change in vision ENT ENT ED: Denies rhinorrhea or sore throat Cardiovascular Cardiovascular: Denies chest pain or palpitations Respiratory/Chest Respiratory/Chest: Denies cough, dyspnea or sputum Gastrointestinal Gastrointestinal: Denies abdominal pain, diarrhea, nausea or vomiting Genitourinary Genitourinary ED: Denies dysuria or hematuria Musculoskeletal Musculoskeletal: Reports other Details: Buttock pain. See history of present illness. ; Denies arthralgias, myalgias or neck pain Integumentary Denies abscess or rash Neurologic Neurologic: Reports other Details: See history of present illness ; Denies headache(s), paresthesias or weakness Psychiatric Psychiatric: Denies depression Endocrine Endocrinology: Denies polydipsia or polyuria Hematologic/Lymphatic Hematologic/Lymphatic: Reports easy bleeding and easy bruising Allergic/Immunologic Allergic/Immunologic ED: Denies urticaria EXAM Physical Exam Const Vital Signs: 08/30/21 10:23 08/30/21 11:54 08/30/21 12:21 Temperature 97.2 F L Temperature Source Temporal Pulse Rate 73 70 Respiratory Rate 14 16 Respiratory Effort Normal Non-Labored Respiratory Depth Normal Respiratory Pattern Normal Blood Pressure 128/78 H 144/79 H Blood Pressure Mean 94 100 Pulse Ox 100 95 98 Oxygen Delivery Method Room Air Room Air Room Air Positive well nourished and well developed General Appearance ED: well developed and NAD HEENT HEENT Narrative: No sign of any head trauma. atraumatic Eyes EOMs intact bilaterally Neck full ROM General: Negative for tenderness Chest Wall inspection of chest normal Resp normal respiratory effort and clear to auscultation bilaterally Cardio regular rhythm Cardio Narrative: Patient has a history of atrial fibrillation but sounds regular at this time. Rate: regular rate GI normal to inspection, nondistended, normoactive bowel sounds, non-tender and non-distended Palpation: soft Back/Spine normal to inspection Back/Spine Narrative: I am not seeing any bruising or contusions at this time. There is no tenderness in the upper spine. As you get toward the lower lumbar area there is soreness but not focal tenderness. She also has soreness down around the sacrum but no contusion yet visible. Extremity normal to inspection and full ROM General Extremety ED: Negative for deformity or tenderness General Extremity: Negative for deformity Neuro oriented x3 Neuro Narrative: NIH is 0. Sensorium / Orientation: alert Psych mental status grossly normal Skin no rashes or lesions noted MDM MDM MDM Narrative Medical decision making narrative: Patient's blood work shows some mild baseline anemia. Sodium was minimally low at 135 but not causing her symptoms. Creatinine was really at her baseline at 1.22. Urine was clean without signs of infection. It was minimally cloudy but there were 0 white cells no leukocyte esterase and no nitrites. CAT scan of her head showed chronic but no acute changes. CAT scan of her LS spine showed a small sacral fracture that was really nondisplaced. It was visible on sagittal images mostly in the anterior wall. She has no bowel bladder or neurologic symptoms. She is ambulatory. We discussed options. She has had some mild confusion but there is no sign of focal deficit. This could be due to fluctuations in blood sugar which they think she has been having but it is good right now. This certainly could be small TIA but she is already on Xarelto. They do not want to come in the hospital. She is at her baseline now. She is doing well. She has good help. She wants to go home. We will write for a small dose of tramadol mostly to take at night. She will try Tylenol and ice and rest during the day. If she has any neurologic symptoms, bowel bladder dysfunction, pain or any other concerns she should return. Lab Data Attestation: I reviewed the patient's lab results. Labs: Laboratory Results - last 24 hr 08/30/21 08/30/21 08/30/21 11:22 11:22 11:56 WBC 8.3 RBC 3.87 L Hgb 11.8 L Hct 34.9 L MCV 90.2 MCH 30.5 MCHC 33.8 RDW Std Deviation 43.8 RDW Coeff of [place] 13.2 Plt Count 165 MPV 10.6 Immature Gran % (Auto) 0.400 Neut % (Auto) 73.0 H Lymph % (Auto) 19.9 [place] % (Auto) 5.5 Eos % (Auto) 0.8 Baso % (Auto) 0.4 Absolute Neuts (auto) 6.1 Absolute Lymphs (auto) 1.65 Nucleated RBC % 0 Sodium 135 L Potassium 4.4 Chloride 102 Carbon Dioxide 24.0 Anion Gap 9 BUN 17 Creatinine 1.22 H Estim Creat Clear Calc 26.66 Est GFR (MDRD) Af Amer 54 L Est GFR (MDRD) Non-Af 45 L BUN/Creatinine Ratio 13.9 Glucose 150 H Calcium 9.1 Troponin I High Sens 9 Urine Color Yellow Urine Clarity Sl. Cloudy Urine pH 6.0 Ur Specific [place] 1.010 Urine Protein Negative Urine Glucose (UA) Normal Urine Ketones Negative Urine Occult Blood Negative Urine Nitrite Negative Urine Bilirubin Negative Urine Urobilinogen Normal Ur Leukocyte Esterase Negative Urine RBC 0 SEEN Urine WBC 0 SEEN Ur Squamous Epith Cells 0-5 SEEN Urine Bacteria 0 SEEN Urine Mucus 0 SEEN Radiography Diagnostic Testing: Clinical Impression(s) from Imaging Studies Brain CT 08/30/21 10:37 IMPRESSION: 1. No acute abnormality. 2. Stable senescent changes. Electronically Signed: Guanako Rashid MD at 11:28 EDT , Lumbar Spine CT 08/30/21 10:37 IMPRESSION: 1. Acute nondisplaced fracture of the sacrum. 2. Multilevel disc and facet degenerative change. 3. L3-4 and L4-5 spinal stenosis related to facet arthropathy and posterior ligamentous redundancy. Electronically Signed: Guanako Rashid MD at 11:35 EDT , EKG Initial EKG: Comments: EKG done for history of A. fib. EKG shows sinus rhythm with rate of 71. First-degree AV block. No ectopy. Discharge Plan Triage Chief Complaint: Fall ED Provider: Elfego Wong Dx/Rx/DC Orders Clinical Impression: Closed sacral fracture, Fall at home Instructions: Anatomy of the Sacroiliac Joint, ED Fall Prevention Prescriptions: New tramadol [Ultram] 50 mg tablet 50 mg PO Q6H PRN (Reason: pain) 3 Days Qty: 10 RF: 0 No Action amiodarone 200 mg tablet 200 mg PO DAILY RF: 0 (DME) lancets [FreeStyle Lancets] 28 gauge misc See Rx Instructions .ROUTE .MEDSUPPLY Qty: 200 RF: 3 (DME) blood-glucose meter [FreeStyle Lite Meter] Kit See Rx Instructions .ROUTE .MEDSUPPLY Qty: 1 RF: 0 (DME) blood sugar diagnostic [FreeStyle Lite Strips] Strip See Rx Instructions .ROUTE .MEDSUPPLY Qty: 100 RF: 3 ferrous sulfate 325 mg (65 mg iron) tablet 325 mg PO QDAY Qty: 90 RF: 3 losartan 50 mg tablet 50 mg PO DAILY Qty: 90 RF: 3 ergocalciferol (vitamin D2) 1,250 mcg (50,000 unit) capsule 50,000 unit PO QMONTH Qty: 7 RF: 1 metformin ER 1,000 mg tablet,extended release 24hr 1,000 mg tablet extended release 24hr 1,000 mg PO QHS Qty: 90 RF: 3 sertraline 50 mg tablet 50 mg PO DAILY Qty: 90 RF: 1 carvedilol 12.5 mg tablet 12.5 mg PO BID Qty: 180 RF: 3 amlodipine 10 mg tablet 10 mg PO DAILY Qty: 90 RF: 3 rivaroxaban 15 mg tablet 15 mg PO DAILY@0600 Qty: 90 RF: 3 lansoprazole [Prevacid] 30 mg capsule,delayed release(DR/EC) 30 mg PO DAILY Qty: 90 RF: 3 Primary Care Provider: Kp Guerra Referrals: Kp Guerra MD [Primary Care Provider] - 3-5 Days Disposition Disposition: Home, Self Care
[2021-08-30 11:34] LABS: Absolute Lymphocyte Count 1.65 X10^3/uL (0.83-4.51); Absolute Neutrophil Count 6.1 X10^3/uL (2.0-7.7); Basophil# 0.03 X10^3/uL; Basophil% 0.4 % (0-1); Eosinophil# 0.07 X10^3/uL; Eosinophils% 0.8 % (0-5); Hematocrit 34.9 % (37-47); Hemoglobin 11.8 g/dL (12.0-15.0); Lymphocyte # 1.65 X10^3/ul (0.83-4.51); Lymphocyte % 19.9 % (19-41); Mean Corp Hgb Conc 33.8 g/dL (32-36); Mean Corpuscular Hgb 30.5 pg (27.0-32.0); Mean Corpuscular Volume 90.2 fL (81-99); Mean Platelet Vol. 10.6 fl (6.2-12.0); Monocyte# 0.46 X10^3/uL; Monocyte% 5.5 % (0-10); NRBC Flagged by Analyzer 0 % (0-5); Neutrophil # 6.07 X10^3/uL (2.7-7.7); Platelet Count 165 K/mm3 (150-450); RBC Distribution Width CV 13.2 % (11.6-14.6); RBC Distribution Width SD 43.8 fl (35.1-43.9); Red Blood Count 3.87 M/mm3 (4.2-5.4); White Blood Count 8.3 K/mm3 (4.4-11.0)
[2021-08-30 11:51] LABS: Anion Gap 9 (5-15); BUN 17 mg/dL (7-18); BUN/Creat Ratio 13.9 RATIO (10-20); Calcium,Total 9.1 mg/dL (8.5-10.1); Chloride 102 mmol/L (98-107); Creatinine, Serum 1.22 mg/dL (0.55-1.02); EST Glomerular Filtration Rate 45 mL/min (>60); Est Glom Filt Rate - Afr Amer 54 mL/min (>60); Estimated Creatinine Clearance 26.66 ml/min; Glucose 150 mg/dL (74-106); Potassium 4.4 mmol/L (3.5-5.1); Sodium Level 135 mmol/L (136-145); Troponin-I HS 9 pg/mL (3.0-54.0)
[2021-08-30 11:54] VITALS: O2SAT 95
[2021-08-30 12:06] LABS: Bacteria 0 SEEN /hpf (None Seen); Mucous, Urine 0 SEEN /hpf (<or=2+); Red Blood Cells-Urine 0 SEEN /hpf (0-5); White Blood Cells 0 SEEN /hpf (0-5)
[2021-08-30 12:20] LABS: Color, Urine Yellow (Yellow); Glucose, Dipstick Normal (Normal); Ketone-Dipstick Negative (Negative); Leukocyte Esterase-Dipstick Negative /ul (Negative); Nitrite-Dipstick Negative (Negative); Occult Blood-Urine Negative /ul (Negative); Protein-Dipstick Negative (Negative); Urine Bilirubin Dipstick Negative (Negative); Urine Clarity Sl. Cloudy (Clear); Urine Urobilinogen Normal (Normal)
[2021-08-30 12:21] VITALS: BP 144/79; PULSE 70; RESP 16; O2SAT 98
[2021-08-30 12:31] LABS: Squamous Epithelial Cells - UA 0-5 SEEN /hpf (5-10)
[2021-08-30 14:04] VITALS: BP 136/78; PULSE 83; RESP 15; O2SAT 97
== END 2021-08-30 14:05 | disposition home or self-care (01) ==
PROVIDERS: Emergency Provider Emergency Medicine; PCP Internal Medicine; Visit Provider Emergency Medicine
DX: S32.10XA Unspecified fracture of sacrum, initial encounter for closed fracture (principal); I50.22 Chronic systolic (congestive) heart failure; I11.0 Hypertensive heart disease with heart failure; I42.8 Other cardiomyopathies; I48.0 Paroxysmal atrial fibrillation; E11.9 Type 2 diabetes mellitus without complications; W18.2XXA Fall in (into) shower or empty bathtub, initial encounter; Y92.002 Bathroom of unspecified non-institutional (private) residence as the place of occurrence of the external cause; K21.9 Gastro-esophageal reflux disease without esophagitis; E78.5 Hyperlipidemia, unspecified; Z79.01 Long term (current) use of anticoagulants; Z79.899 Other long term (current) drug therapy; D64.9 Anemia, unspecified; I44.0 Atrioventricular block, first degree; Z79.84 Long term (current) use of oral hypoglycemic drugs
CPT/HCPCS: 70450; 72131; 80048; 81001; 84484; 85025; 93005; 99283

== ENCOUNTER → 2022-01-03 | Outpatient (CLI) | payer OTHER, SELFPAY ==
[2022-01-03 12:19] LABS: Absolute Lymphocyte Count 2.02 X10^3/uL (0.83-4.51); Absolute Neutrophil Count 2.9 X10^3/uL (2.0-7.7); Basophil# 0.03 X10^3/uL; Basophil% 0.6 % (0-1); Eosinophil# 0.07 X10^3/uL; Eosinophils% 1.3 % (0-5); Hematocrit 37.2 % (37-47); Hemoglobin 12.4 g/dL (12.0-15.0); Lymphocyte # 2.02 X10^3/ul (0.83-4.51); Lymphocyte % 37.5 % (19-41); Mean Corp Hgb Conc 33.3 g/dL (32-36); Mean Corpuscular Hgb 31.6 pg (27.0-32.0); Mean Corpuscular Volume 94.9 fL (81-99); Mean Platelet Vol. 10.7 fl (6.2-12.0); Monocyte# 0.37 X10^3/uL; Monocyte% 6.9 % (0-10); NRBC Flagged by Analyzer 0 % (0-5); Neutrophil # 2.88 X10^3/uL (2.7-7.7); Neutrophil % 53.5 % (47-70); Platelet Count 167 K/mm3 (150-450); RBC Distribution Width CV 13.3 % (11.6-14.6); RBC Distribution Width SD 46.6 fl (35.1-43.9); Red Blood Count 3.92 M/mm3 (4.2-5.4); White Blood Count 5.4 K/mm3 (4.4-11.0)
[2022-01-03 12:41] LABS: Vitamin D,25 Hydroxy 17.1 ng/mL
[2022-01-03 13:03] LABS: AST(SGOT) 13 U/L (15-37); Alanine Aminotransfer ALT/SGPT 14 U/L (13-56); Albumin, Serum 4.3 g/dL (3.2-5.0); Alkaline Phosphatase 88 U/L (45-117); Anion Gap 9 (5-15); BUN 16 mg/dL (7-18); BUN/Creat Ratio 14.3 RATIO (10-20); Calcium,Total 9.6 mg/dL (8.5-10.1); Chloride 103 mmol/L (98-107); Cholesterol 248 mg/dL (200); Creatinine, Serum 1.12 mg/dL (0.55-1.02); EST Glomerular Filtration Rate 49 mL/min (>60); Est Glom Filt Rate - Afr Amer 59 mL/min (>60); Globulin 4.2 g/dL (2.2-4.2); Glucose 169 mg/dL (74-106); High Density Lipoprotein 54 mg/dL; Potassium 4.7 mmol/L (3.5-5.1); Protein, Total 8.5 g/dL (6.4-8.2); Sodium Level 138 mmol/L (136-145); Triglycerides 232 mg/dL; Very Low Density Lipoprotein 46 mg/dL (5-40)
[2022-01-03 13:05] LABS: Hemoglobin A1c 6.9 % (3.8-5.6)
== END | disposition home or self-care (01) ==
LOC: BIMLAB 10:23
PROVIDERS: PCP Internal Medicine; Referring Provider Internal Medicine; Visit Provider Internal Medicine
DX: I10 Essential (primary) hypertension (principal); E11.9 Type 2 diabetes mellitus without complications; E55.9 Vitamin D deficiency, unspecified
CPT/HCPCS: 36415; 80053; 80061; 82306; 83036; 85025

== ENCOUNTER → 2022-07-03 | Outpatient (CLI) | payer OTHER, SELFPAY ==
[2022-07-03 12:32] LABS: Vitamin D,25 Hydroxy 23.2 ng/mL
[2022-07-03 12:34] LABS: ALB/GLOB Ratio 1.1 RATIO (0.9-2.4); AST(SGOT) 17 U/L (15-37); Alanine Aminotransfer ALT/SGPT 16 U/L (13-56); Albumin, Serum 4.1 g/dL (3.2-5.0); Alkaline Phosphatase 80 U/L (45-117); Anion Gap 8 (5-15); BUN 16 mg/dL (7-18); BUN/Creat Ratio 12.1 RATIO (10-20); Calcium,Total 9.4 mg/dL (8.5-10.1); Chloride 105 mmol/L (98-107); Creatinine, Serum 1.32 mg/dL (0.55-1.02); EST Glomerular Filtration Rate 41 mL/min (>60); Est Glom Filt Rate - Afr Amer 49 mL/min (>60); Globulin 3.8 g/dL (2.2-4.2); Glucose 193 mg/dL (74-106); Potassium 4.5 mmol/L (3.5-5.1); Protein, Total 7.9 g/dL (6.4-8.2); Sodium Level 137 mmol/L (136-145)
[2022-07-03 12:42] LABS: Absolute Lymphocyte Count 2.46 X10^3/uL (0.83-4.51); Absolute Neutrophil Count 4.2 X10^3/uL (2.0-7.7); Basophil# 0.04 X10^3/uL; Basophil% 0.6 % (0-1); Eosinophil# 0.13 X10^3/uL; Eosinophils% 1.8 % (0-5); Hematocrit 37.7 % (37-47); Hemoglobin 12.2 g/dL (12.0-15.0); Lymphocyte # 2.46 X10^3/ul (0.83-4.51); Lymphocyte % 33.9 % (19-41); Mean Corp Hgb Conc 32.4 g/dL (32-36); Mean Corpuscular Hgb 31.6 pg (27.0-32.0); Mean Corpuscular Volume 97.7 fL (81-99); Mean Platelet Vol. 11.1 fl (6.2-12.0); Monocyte# 0.46 X10^3/uL; Monocyte% 6.3 % (0-10); NRBC Flagged by Analyzer 0 % (0-5); Neutrophil # 4.15 X10^3/uL (2.7-7.7); Neutrophil % 57.1 % (47-70); Platelet Count 183 K/mm3 (150-450); RBC Distribution Width CV 12.7 % (11.6-14.6); RBC Distribution Width SD 45.5 fl (35.1-43.9); Red Blood Count 3.86 M/mm3 (4.2-5.4); White Blood Count 7.3 K/mm3 (4.4-11.0)
== END | disposition home or self-care (01) ==
LOC: BIMLAB 10:02
PROVIDERS: PCP Internal Medicine; Referring Provider Internal Medicine; Visit Provider Internal Medicine
DX: I10 Essential (primary) hypertension (principal); E55.9 Vitamin D deficiency, unspecified
CPT/HCPCS: 36415; 80053; 82306; 85025

== ENCOUNTER → 2023-01-12 | Outpatient (CLI) | payer OTHER, SELFPAY ==
[2023-01-12 12:22] LABS: Absolute Lymphocyte Count 2.07 X10^3/uL (0.83-4.51); Absolute Neutrophil Count 3.3 X10^3/uL (2.0-7.7); Basophil# 0.02 X10^3/uL; Basophil% 0.3 % (0-1); Eosinophil# 0.17 X10^3/uL; Eosinophils% 2.9 % (0-5); Hematocrit 39.7 % (37-47); Hemoglobin 12.5 g/dL (12.0-15.0); Lymphocyte # 2.07 X10^3/ul (0.83-4.51); Mean Corp Hgb Conc 31.5 g/dL (32-36); Mean Corpuscular Hgb 30.5 pg (27.0-32.0); Mean Corpuscular Volume 96.8 fL (81-99); Mean Platelet Vol. 11.1 fl (6.2-12.0); Monocyte% 5.1 % (0-10); NRBC Flagged by Analyzer 0 % (0-5); Neutrophil # 3.33 X10^3/uL (2.7-7.7); Neutrophil % 56.4 % (47-70); Platelet Count 163 K/mm3 (150-450); RBC Distribution Width CV 13.2 % (11.6-14.6); RBC Distribution Width SD 47.7 fl (35.1-43.9); White Blood Count 5.9 K/mm3 (4.4-11.0)
[2023-01-12 13:16] LABS: Hemoglobin A1c 6.8 % (3.8-5.6)
[2023-01-12 13:31] LABS: AST(SGOT) 19 U/L (15-37); Alanine Aminotransfer ALT/SGPT 18 U/L (13-56); Albumin, Serum 4.5 g/dL (3.2-5.0); Alkaline Phosphatase 87 U/L (45-117); Anion Gap 6 (5-15); BUN 18 mg/dL (7-18); BUN/Creat Ratio 16.1 RATIO (10-20); Calcium,Total 9.5 mg/dL (8.5-10.1); Chloride 108 mmol/L (98-107); Cholesterol 220 mg/dL (200); Creatinine, Serum 1.12 mg/dL (0.55-1.02); EST Glomerular Filtration Rate 49 mL/min (>60); Est Glom Filt Rate - Afr Amer 59 mL/min (>60); Globulin 4.5 g/dL (2.2-4.2); Glucose 192 mg/dL (74-106); High Density Lipoprotein 47 mg/dL; Potassium 4.5 mmol/L (3.5-5.1); Sodium Level 138 mmol/L (136-145); Triglycerides 330 mg/dL; Very Low Density Lipoprotein 66 mg/dL (5-40)
== END | disposition home or self-care (01) ==
LOC: BIMLAB 10:48
PROVIDERS: PCP Internal Medicine; Referring Provider Internal Medicine; Visit Provider Internal Medicine
DX: I10 Essential (primary) hypertension (principal); E11.9 Type 2 diabetes mellitus without complications
CPT/HCPCS: 36415; 80053; 80061; 83036; 85025

== ENCOUNTER → 2023-07-27 | Outpatient (CLI) | payer OTHER, SELFPAY ==
[2023-07-27 12:06] LABS: Absolute Lymphocyte Count 2.63 X10^3/uL (0.83-4.51); Absolute Neutrophil Count 3.4 X10^3/uL (2.0-7.7); Basophil# 0.04 X10^3/uL; Basophil% 0.6 % (0-1); Eosinophil# 0.16 X10^3/uL; Eosinophils% 2.4 % (0-5); Hematocrit 37.1 % (37-47); Hemoglobin 11.8 g/dL (12.0-15.0); Lymphocyte # 2.63 X10^3/ul (0.83-4.51); Mean Corp Hgb Conc 31.8 g/dL (32-36); Mean Corpuscular Hgb 30.2 pg (27.0-32.0); Mean Corpuscular Volume 94.9 fL (81-99); Mean Platelet Vol. 10.9 fl (6.2-12.0); Monocyte# 0.48 X10^3/uL; Monocyte% 7.1 % (0-10); NRBC Flagged by Analyzer 0 % (0-5); Neutrophil % 50.5 % (47-70); Platelet Count 181 K/mm3 (150-450); RBC Distribution Width CV 13.6 % (11.6-14.6); RBC Distribution Width SD 47.6 fl (35.1-43.9); Red Blood Count 3.91 M/mm3 (4.2-5.4); White Blood Count 6.7 K/mm3 (4.4-11.0)
[2023-07-27 13:05] LABS: Anion Gap 7 (5-15); BUN 16 mg/dL (7-18); BUN/Creat Ratio 12.6 RATIO (10-20); Calcium,Total 9.4 mg/dL (8.5-10.1); Chloride 106 mmol/L (98-107); Creatinine, Serum 1.27 mg/dL (0.55-1.02); EST Glomerular Filtration Rate 42 mL/min (>60); Est Glom Filt Rate - Afr Amer 51 mL/min (>60); Glucose 181 mg/dL (74-106); Potassium 4.8 mmol/L (3.5-5.1); Sodium Level 136 mmol/L (136-145)
[2023-07-27 14:02] LABS: Hemoglobin A1c 6.6 % (3.8-5.6)
== END | disposition home or self-care (01) ==
LOC: BIMLAB 11:21
PROVIDERS: PCP Internal Medicine; Visit Provider Internal Medicine
DX: E11.9 Type 2 diabetes mellitus without complications (principal); I10 Essential (primary) hypertension
CPT/HCPCS: 36415; 80048; 83036; 85025

== ENCOUNTER → 2024-02-08 | Outpatient (CLI) | payer OTHER, SELFPAY ==
[2024-02-08 16:26] LABS: Absolute Lymphocyte Count 2.49 X10^3/uL (0.83-4.51); Absolute Neutrophil Count 3.9 X10^3/uL (2.0-7.7); Basophil# 0.05 X10^3/uL; Basophil% 0.7 % (0-1); Eosinophils% 2.8 % (0-5); Hematocrit 37.6 % (37-47); Hemoglobin 12.1 g/dL (12.0-15.0); Lymphocyte # 2.49 X10^3/ul (0.83-4.51); Lymphocyte % 34.9 % (19-41); Mean Corp Hgb Conc 32.2 g/dL (32-36); Mean Corpuscular Hgb 30.3 pg (27.0-32.0); Mean Corpuscular Volume 94.2 fL (81-99); Mean Platelet Vol. 10.6 fl (6.2-12.0); Monocyte# 0.45 X10^3/uL; Monocyte% 6.3 % (0-10); NRBC Flagged by Analyzer 0 % (0-5); Neutrophil # 3.93 X10^3/uL (2.7-7.7); Platelet Count 195 K/mm3 (150-450); RBC Distribution Width CV 13.1 % (11.6-14.6); RBC Distribution Width SD 45.5 fl (35.1-43.9); Red Blood Count 3.99 M/mm3 (4.2-5.4); White Blood Count 7.1 K/mm3 (4.4-11.0)
[2024-02-08 16:42] LABS: AST(SGOT) 15 U/L (15-37); Alanine Aminotransfer ALT/SGPT 13 U/L (13-56); Albumin, Serum 4.2 g/dL (3.2-5.0); Alkaline Phosphatase 93 U/L (45-117); Anion Gap 6 (5-15); BUN 20 mg/dL (7-18); Calcium,Total 9.7 mg/dL (8.5-10.1); Chloride 106 mmol/L (98-107); Cholesterol 233 mg/dL (200); Creatinine, Serum 1.33 mg/dL (0.55-1.02); EST Glomerular Filtration Rate 40 mL/min (>60); Est Glom Filt Rate - Afr Amer 48 mL/min (>60); Globulin 4.4 g/dL (2.2-4.2); Glucose 168 mg/dL (74-106); High Density Lipoprotein 50 mg/dL; Potassium 4.7 mmol/L (3.5-5.1); Protein, Total 8.6 g/dL (6.4-8.2); Sodium Level 136 mmol/L (136-145); Triglycerides 280 mg/dL; Very Low Density Lipoprotein 56 mg/dL (5-40)
== END | disposition home or self-care (01) ==
LOC: BIMLAB 15:35
PROVIDERS: PCP Internal Medicine; Referring Provider Internal Medicine; Visit Provider Internal Medicine
DX: I10 Essential (primary) hypertension (principal)
CPT/HCPCS: 36415; 80053; 80061; 85025

== ENCOUNTER 2024-06-28 10:35 | Emergency (ER) | payer OTHER, SELFPAY ==
[2024-06-28 10:37] VITALS: BP 168/87; PULSE 87; RESP 16; TEMP 36.7; O2SAT 100; BMI 27.8
--- NOTE | 2024-06-28 10:50 | EDS_ITS ---
HPI History of Present Illness Chief Complaint: Laceration Detail of Chief Complaint: Laceration left forearm Informant: patient Narrative Narrative: Patient presents with a laceration to her left forearm that occurred yesterday. She was letting her dog and who is 6 months old and a puppy. The dog jumped up at her and scratched her left forearm with its paw. There was no bite. Patient on Xarelto and will go to stop bleeding. She denies fevers or chills or sweats. She is unsure of her last tetanus. [facility] Medical History Debility Vitamin D deficiency Back pain Flu vaccine need Cough Limb weakness Difficulty balancing Fatigue SOB (shortness of breath) Chronic systolic heart failure Secondary pulmonary arterial hypertension Non-ischemic cardiomyopathy Paroxysmal atrial fibrillation Arthritis GERD (gastroesophageal reflux disease) Orthostatic hypotension Atrial flutter T2DM (type 2 diabetes mellitus) HLD (hyperlipidemia) Atrial fibrillation HTN (hypertension) Home Medications ?Medication ?Instructions ?Recorded ?Last Taken ?Type amiodarone 200 mg tablet 200 mg PO DAILY 02/12/18 Unk nown History blood sugar diagnostic (FreeStyle #100 ea [facility]09[facility] blood-glucose meter (FreeStyle #1 ea 09/09/19 Unknown Rx Lite Meter kit) lancets 28 gauge (FreeStyle #200 ea 09/09/19 Unknown R x Lancets) ferrous sulfate 325 mg (65 mg 325 mg PO QDAY #90 tabs 01/12/23 Unknown Rx iron) tablet lansoprazole 30 mg capsule,delayed 30 mg PO DAILY #90 caps 09/25/23 Unknown Rx release (Prevacid) ergocalciferol (vitamin D2) 1,250 50,000 unit PO QMONT H SUPPLEMENT 12/25/23 Unknown Rx mcg (50,000 unit) capsule #7 caps mirtazapine 7.5 mg tablet See Rx Instructions .Route 0 12/26/23 Unknown Rx .COMPLEX #90 tabs metformin 500 mg tablet,extended 1,000 mg (2 x 500 mg) PO QPM #180 01/04/24 Unknown Rx release 24 hr tabs rivaroxaban 15 mg tablet 15 mg PO DAILY@0600 #90 tabs 01/04/24 Unknown Rx carvedilol 12.5 mg tablet 12.5 mg PO BID #180 tabs 06/16 Unknown Rx amlodipine 10 mg tablet 10 mg PO DAILY #90 tabs 11/14 Unknown Rx losartan 50 mg tablet 50 mg PO DAILY #90 tabs 08/15 Unknown Rx sertraline 50 mg tablet 50 mg PO DAILY #90 tabs 08/15 Unknown Rx cephalexin 500 mg capsule 500 mg PO 3XD #21 CAPSULES 0 06/28/24 Unknown Rx Allergy/AdvReac Type Severity Reaction Status Date / Time No Known Allergies Allergy Verified 06/28/24 10:39 Family History Mother CVA (cerebral vascular accident) Father Myocardial infarction suspected [place] Sister Diabetes Heart disease Brother Cancer prostate Social History Smoking Status: Never smoker alcohol intake: never substance use type: does not use what type of physical activity do you participate in: none ROS ROS ED Review of Systems ROS Unobtainable: other Constitutional Constitutional ED: Reports lethargy; Denies chills, fever(s), sweats or weight loss Eyes Eyes: Denies blurry vision, change in vision or diplopia ENT ENT ED: Denies rhinorrhea or sore throat Cardiovascular Cardiovascular: Denies chest pain, orthopnea or racing heartbeat Respiratory/Chest Respiratory/Chest: Denies cough, dyspnea, dyspnea on exertion, orthopnea or sputum Gastrointestinal Gastrointestinal: Denies abdominal pain, diarrhea, nausea or vomiting Genitourinary Genitourinary ED: Denies dysuria, hematuria or urinary frequency Musculoskeletal Musculoskeletal: Reports other Details: Laceration left forearm ; Denies arthralgias, back pain, myalgias or neck pain Integumentary Denies abscess, Abrasions or rash Neurologic Neurologic: Denies headache(s) or weakness Psychiatric Psychiatric: Denies anxiety, depression or suicidal thoughts Endocrine Endocrinology: Denies polydipsia, polyphagia or polyuria Hematologic/Lymphatic Hematologic/Lymphatic: Denies easy bleeding, easy bruising or lymphadenopathy Allergic/Immunologic Allergic/Immunologic ED: Denies mouth swelling, tongue swelling or urticaria EXAM Physical Exam Const Vital Signs: 06/28/24 10:37 Temperature 98.1 F Temperature Source Temporal Pulse Rate 87 Respiratory Rate 16 Blood Pressure 168/87 H Blood Pressure Mean 114 Pulse Ox 100 Oxygen Delivery Method Room Air Positive well nourished and well developed General Appearance ED: well developed and NAD HEENT Reports TM's clear and moist mucous membranes normocephalic and atraumatic; Negative for trauma or tenderness Tympanic Membrane ED: Yes TM's clear Eyes PERRL and EOMs intact bilaterally General Eye ED: Negative for pale conjunctiva or scleral icterus Neck no lymphadenopathy, supple and no JVD General: Negative for tenderness Chest Wall inspection of chest normal and palpation of chest normal Chest: Negative for tenderness Resp normal respiratory effort and clear to auscultation bilaterally Effort and Inspection: Negative for respiratory distress or pain with movement Auscultation: Negative for rhonchi, wheezes or diminished lung sounds Cardio regular rate, regular rhythm, S1 normal heart sound, S2 normal heart sound and no murmurs Peripheral Pulses: pulses 2+ throughout GI normal to inspection, nondistended, normoactive bowel sounds, soft to palpation, non-tender, non-distended and no masses Back/Spine no CVA tenderness and no thoracic nor lumbar tenderness Extremity Extremity Narrative: Left forearm-patient has a 2.5 cm laceration over the dorsum of the distal forearm with small amount of venous oozing. Normal range of motion of all digits. Neurovascular intact distally. The wound appears superficial. General Extremety ED: Negative for edema General Extremity: Negative for edema Neuro oriented x3, CN's II-XII intact bilaterally, no sensory deficits noted and gait normal Sensorium / Orientation: awake, alert, oriented to person, oriented to place and oriented to time Motor Exam: strength 5/5 throughout and strength abnormal Psych mental status grossly normal Skin no rashes or lesions noted and no wounds MDM MDM MDM Narrative Medical decision making narrative: Patient with a dermal laceration to the dorsum of the left wrist. Small amount of oozing ongoing due to of A-fib. I did anesthetized the area with 1% lidocaine with epinephrine. She did have improvement in the amount of bleeding. I did use some Gelfoam to place over the wound and a small pressure dressing was applied over the wound. Patient was given tetanus booster. She will be started on Keflex to prevent infection. This was not a bite but a scratch. Advised to return if persistent bleeding, increased redness, fever, or condition worsen anyway Discharge Plan Triage Chief Complaint: Laceration ED Provider: Ungur,Remus Dx/Rx/DC Orders Clinical Impression: Laceration of forearm, left Instructions: ED Laceration, Old: Not Sutured Prescriptions: New cephalexin 500 mg capsule 500 mg PO 3XD Qty: 21 0RF No Action amiodarone 200 mg tablet 200 mg PO DAILY Patient Comments: A-fib (DME) lancets [FreeStyle Lancets] 28 gauge misc See Rx Instructions .ROUTE .MEDSUPPLY Qty: 200 3RF Rx Instructions: check blood glucose daily for type 2 DM (DME) blood-glucose meter [FreeStyle Lite Meter] Kit See Rx Instructions .ROUTE .MEDSUPPLY Qty: 1 0RF Rx Instructions: As directed, check blood glucose daily for type 2 DM (DME) blood sugar diagnostic [FreeStyle Lite Strips] Strip See Rx Instructions .ROUTE .MEDSUPPLY Qty: 100 3RF Rx Instructions: check blood glucose daily for type 2 DM ferrous sulfate 325 mg (65 mg iron) tablet 325 mg PO QDAY Qty: 90 3RF lansoprazole [Prevacid] 30 mg capsule,delayed release(DR/EC) 30 mg PO DAILY Qty: 90 3RF ergocalciferol (vitamin D2) 1,250 mcg (50,000 unit) capsule 50,000 unit PO QMONTH Qty: 7 4RF mirtazapine 7.5 mg tablet See Rx Instructions .ROUTE .COMPLEX Qty: 90 1RF Dose Instruction: 7.5 MG ORALLY AT BEDTIME NEEDED FOR INSOMNIA Rx Instructions: 7.5 MG ORALLY AT BEDTIME NEEDED FOR INSOMNIA metformin 500 mg tablet extended release 24 hr 1,000 mg PO QPM Qty: 180 3RF rivaroxaban 15 mg tablet 15 mg PO DAILY@0600 Qty: 90 3RF Patient Comments: blood thinner carvedilol 12.5 mg tablet 12.5 mg PO BID Qty: 180 3RF amlodipine 10 mg tablet 10 mg PO DAILY Qty: 90 3RF losartan 50 mg tablet 50 mg PO DAILY Qty: 90 1RF sertraline 50 mg tablet 50 mg PO DAILY Qty: 90 1RF Primary Care Provider: Kp Guerra Referrals: Kp Guerra MD [Primary Care Provider] - 3-5 Days Print Language: Croatian Disposition Disposition: Home, Self Care
[2024-06-28] MEDS: Lidocaine 1% /Epi 1:100 (20ml) 20 ML Vial 4 ML INFILT (11:09)
[2024-06-28] MEDS: Diphth,Pertuss(Acell),Tet Vac 0.5 ML Vial IM (11:21)
[2024-06-28 11:40] VITALS: BP 168/87; PULSE 87; RESP 16; TEMP 36.7; O2SAT 100
== END 2024-06-28 11:40 | disposition home or self-care (01) ==
PROVIDERS: Emergency Provider Emergency Medicine; PCP Internal Medicine; Visit Provider Emergency Medicine
DX: S61.512A Laceration without foreign body of left wrist, initial encounter (principal); I11.0 Hypertensive heart disease with heart failure; I50.22 Chronic systolic (congestive) heart failure; I48.0 Paroxysmal atrial fibrillation; E11.9 Type 2 diabetes mellitus without complications; Z79.01 Long term (current) use of anticoagulants; E78.5 Hyperlipidemia, unspecified; W26.8XXA Contact with other sharp object(s), not elsewhere classified, initial encounter; Y93.K9 Activity, other involving animal care; K21.9 Gastro-esophageal reflux disease without esophagitis; Z79.899 Other long term (current) drug therapy; Z79.84 Long term (current) use of oral hypoglycemic drugs; Z23 Encounter for immunization
CPT/HCPCS: 12001; 90715; 99282

== ENCOUNTER → 2024-07-25 | Outpatient (CLI) | payer OTHER, SELFPAY ==
[2024-07-25 12:18] LABS: Absolute Lymphocyte Count 1.88 X10^3/uL (0.83-4.51); Absolute Neutrophil Count 4.8 X10^3/uL (2.0-7.7); Basophil# 0.04 X10^3/uL; Basophil% 0.5 % (0-1); Eosinophil# 0.22 X10^3/uL; Eosinophils% 2.9 % (0-5); Hematocrit 33.7 % (37-47); Hemoglobin 11.1 g/dL (12.0-15.0); Lymphocyte # 1.88 X10^3/ul (0.83-4.51); Lymphocyte % 25.1 % (19-41); Mean Corp Hgb Conc 32.9 g/dL (32-36); Mean Corpuscular Hgb 30.9 pg (27.0-32.0); Mean Corpuscular Volume 93.9 fL (81-99); Mean Platelet Vol. 11.7 fl (6.2-12.0); Monocyte# 0.55 X10^3/uL; Monocyte% 7.3 % (0-10); NRBC Flagged by Analyzer 0 % (0-5); Neutrophil # 4.77 X10^3/uL (2.7-7.7); Neutrophil % 63.8 % (47-70); Platelet Count 184 K/mm3 (150-450); RBC Distribution Width CV 13.2 % (11.6-14.6); Red Blood Count 3.59 M/mm3 (4.2-5.4); White Blood Count 7.5 K/mm3 (4.4-11.0)
[2024-07-25 12:47] LABS: ALB/GLOB Ratio 1.1 RATIO (0.9-2.4); AST(SGOT) 23 U/L (<=31); Alanine Aminotransfer ALT/SGPT 10 U/L (<=34); Albumin, Serum 4.2 g/dL (3.4-4.8); Alkaline Phosphatase 102 U/L (35-104); Anion Gap 15 (5-15); BUN 20 mg/dL (4-19); BUN/Creat Ratio 16.1 RATIO (10-20); Calcium,Total 9.7 mg/dL (7.6-11.0); Carbon Dioxide 19.1 mmol/L (21.0-32.0); Chloride 104 mmol/L (98-108); Creatinine, Serum 1.22 mg/dL (0.70-1.20); EST Glomerular Filtration Rate 43 (>60); Globulin 3.9 g/dL (2.2-4.2); Glucose 207 mg/dL (70-99); Potassium 4.8 mmol/L (3.3-5.1); Protein, Total 8.1 g/dL (5.9-8.4); Sodium Level 138 mmol/L (133-145); Total Bilirubin 0.64 mg/dL (0.00-1.30)
== END | disposition home or self-care (01) ==
LOC: BIMLAB 10:32
PROVIDERS: PCP Internal Medicine; Referring Provider Internal Medicine; Visit Provider Internal Medicine
DX: I10 Essential (primary) hypertension (principal)
CPT/HCPCS: 36415; 80053; 84439; 84443; 85025

== ENCOUNTER → 2024-08-01 | Outpatient (CLI) | payer OTHER, SELFPAY ==
[2024-08-01 13:27] LABS: Anion Gap 13 (5-15); BUN 21 mg/dL (4-19); BUN/Creat Ratio 16.1 RATIO (10-20); Calcium,Total 9.6 mg/dL (7.6-11.0); Chloride 101 mmol/L (98-108); Creatinine, Serum 1.27 mg/dL (0.70-1.20); EST Glomerular Filtration Rate 41 (>60); Glucose 190 mg/dL (70-99); Potassium 5.7 mmol/L (3.3-5.1); Sodium Level 138 mmol/L (133-145)
== END | disposition home or self-care (01) ==
LOC: BIMLAB 10:47
PROVIDERS: PCP Internal Medicine; Referring Provider Internal Medicine; Visit Provider Internal Medicine
DX: R53.81 Other malaise (principal); R53.83 Other fatigue
CPT/HCPCS: 36415; 80048

== ENCOUNTER → 2024-08-05 | Outpatient (CLI) | payer OTHER, SELFPAY ==
[2024-08-05 13:07] LABS: Anion Gap 14 (5-15); BUN 14 mg/dL (4-19); Calcium,Total 9.4 mg/dL (7.6-11.0); Chloride 100 mmol/L (98-108); Creatinine, Serum 1.13 mg/dL (0.70-1.20); EST Glomerular Filtration Rate 47 (>60); Glucose 216 mg/dL (70-99); Potassium 4.6 mmol/L (3.3-5.1); Sodium Level 135 mmol/L (133-145)
== END | disposition home or self-care (01) ==
PROVIDERS: PCP Internal Medicine; Referring Provider Internal Medicine; Visit Provider Internal Medicine
DX: I10 Essential (primary) hypertension (principal)
CPT/HCPCS: 36415; 80048

== ENCOUNTER 2024-08-21 16:13 | Emergency (ER) | payer OTHER, SELFPAY ==
[2024-08-21 16:14] VITALS: BP 158/122; PULSE 108; RESP 18; TEMP 36.6; O2SAT 98; BMI 25.9
--- NOTE | 2024-08-21 16:40 | EX.ED.GENINJ ---
HPI <ANGEL Vasques - Last Filed: 08/21/24 18:38> History of Present Illness Chief Complaint: Fall Narrative Narrative: Patient presenting today due to a mechanical fall that occurred this afternoon. She was trying to open up a gate on her property to walk inside with groceries, she was in a hurry because she thought it was going to rain and she fell, she put her right arm out to try to stop her fall and landed on her right shoulder. She did not hit her head and denies any LOC. She reports pain to her right shoulder and left foot. She has a skin tear to her right peters, her tetanus is up-to-date. She is on Xarelto due to history of paroxysmal A-fib. PFS <ANGEL Vasques - Last Filed: 08/21/24 18:38> [facility] Medical History Anxiety and depression Malaise and fatigue Debility Vitamin D deficiency Back pain Flu vaccine need Cough Limb weakness Difficulty balancing Fatigue SOB (shortness of breath) Chronic systolic heart failure Secondary pulmonary arterial hypertension Non-ischemic cardiomyopathy Paroxysmal atrial fibrillation Arthritis GERD (gastroesophageal reflux disease) Orthostatic hypotension Atrial flutter T2DM (type 2 diabetes mellitus) HLD (hyperlipidemia) Atrial fibrillation HTN (hypertension) Home Medications ?Medication ?Instructions ?Recorded ?Last Taken ?Type amiodarone 200 mg tablet 200 mg PO DAILY 02/12/18 Unknown History blood sugar diagnostic (FreeStyle #100 ea 09/09/19 Unknown Rx Lite Strips) blood-glucose meter (FreeStyle #1 ea 09/09/19 Unknown Rx Lite Meter kit) lancets 28 gauge (FreeStyle #200 ea 09/09/19 Unknown Rx Lancets) ferrous sulfate 325 mg (65 mg 325 mg PO QDAY #90 tabs 01/12/23 Unknown Rx iron) tablet lansoprazole 30 mg capsule,delayed 30 mg PO DAILY #90 caps 09/25/23 Unknown Rx release (Prevacid) ergocalciferol (vitamin D2) 1,250 50,000 unit PO QMONTH SUPPLEMENT 12/25/23 Unknown Rx mcg (50,000 unit) capsule #7 caps mirtazapine 7.5 mg tablet See Rx Instructions .Route 12/26/23 Unknown Rx .COMPLEX #90 tabs metformin 500 mg tablet,extended 1,000 mg (2 x 500 mg) PO QPM #180 01/04/24 Unknown Rx release 24 hr tabs rivaroxaban 15 mg tablet 15 mg PO DAILY@0600 #90 tabs 01/04/24 Unknown Rx carvedilol 12.5 mg tablet 12.5 mg PO BID #180 tabs 03/24/24 Unknown Rx amlodipine 10 mg tablet 10 mg PO DAILY #90 tabs 04/29/24 Unknown Rx losartan 50 mg tablet 50 mg PO DAILY #90 tabs 06/24/24 Unknown Rx sertraline 50 mg tablet 50 mg PO DAILY #90 tabs 06/24/24 Unknown Rx hydrocodone-acetaminophen 5-325mg 1 tab PO Q6H 4 days #16 TABLETS 08/21/24 Unknown Rx 5mg-325mg Allergy/AdvReac Type Severity Reaction Status Date / Time No Known Allergies Allergy Verified 08/21/24 16:14 Family History Mother CVA (cerebral vascular accident) Father Myocardial infarction suspected [place] Sister Diabetes Heart disease Brother Cancer prostate Social History (Updated 08/21/24 @ 16:58 by Kaylee Funes) household members: none Smoking Status: Never smoker alcohol intake: never substance use type: does not use what type of physical activity do you participate in: none ROS <ANGEL Vasques - Last Filed: 08/21/24 18:38> ROS ED Constitutional Constitutional ED: Denies chills or fever(s) Cardiovascular Cardiovascular: Denies chest pain Respiratory/Chest Respiratory/Chest: Denies dyspnea Gastrointestinal Gastrointestinal: Denies abdominal pain Musculoskeletal Musculoskeletal: Reports arthralgias; Denies back pain or neck pain Integumentary Reports Abrasions Neurologic Neurologic: Denies headache(s) or paresthesias EXAM <ANGEL Vasques - Last Filed: 08/21/24 18:38> Physical Exam Const Vital Signs: 08/21/24 16:14 08/21/24 16:58 08/21/24 18:04 Temperature 98 F 98.0 F Temperature Source Oral Pulse Rate 108 H 73 Respiratory Rate 18 18 Respiratory Effort Normal Non-Labored Blood Pressure 158/122 H 134/65 H Blood Pressure Mean 134 88 Pulse Ox 98 99 Oxygen Delivery Method Room Air Room Air Positive well nourished, well developed and no apparent distress General Appearance ED: well developed HEENT Reports normocephalic and head/scalp atraumatic Mouth ED: Yes moist mucous membranes normal Eyes PERRL and EOMs intact bilaterally Neck full ROM and supple Neck Narrative: No midline cervical tenderness Chest Wall inspection of chest normal Resp normal respiratory effort and clear to auscultation bilaterally Cardio regular rate and regular rhythm GI soft to palpation, non-tender, non-distended and no masses Back/Spine normal ROM and normal to inspection Extremity normal to inspection and full ROM Extremity Narrative: No pain to the bilateral hips, pain to the base of the left fifth metatarsal, no pain to the left lateral or medial malleolus. Bilateral DP pulse and radial pulse 2+, good cap refill, sensation intact. 3 cm skin tear to the right peters with no active bleeding. Limited exam of the right shoulder given pain, decreased ROM due to pain, right upper extremity neurovascularly intact. No tenderness to the right forearm or elbow. Neuro oriented x3, CN's II-XII intact bilaterally, moves all extremities, no focal motor deficits and no sensory deficits noted Sensorium / Orientation: awake and alert Psych mental status grossly normal and thought process normal Skin Skin Narrative: Aside from skin tear to the right peters no other rashes or lesions noted. <Dr. José Palencia MD - Last Filed: 08/21/24 17:32> Physical Exam Const Vital Signs: 08/21/24 16:14 08/21/24 16:58 08/21/24 18:04 Temperature 98 F 98.0 F Temperature Source Oral Pulse Rate 108 H 73 Respiratory Rate 18 18 Respiratory Effort Normal Non-Labored Blood Pressure 158/122 H 134/65 H Blood Pressure Mean 134 88 Pulse Ox 98 99 Oxygen Delivery Method Room Air Room Air [facility] <ANGEL Vasques - Last Filed: 08/21/24 18:38> [facility] Narrative Medical decision making narrative: Patient presenting today due to a mechanical fall that occurred this evening resulting in a right shoulder and left foot injury. She did not hit her head, no LOC occurred. X-rays will be obtained and she will be given pain medication. She is neurovascularly intact. X-ray of the foot shows a nondisplaced transverse fracture at the base of the fifth metatarsal, shoulder x-ray shows mildly displaced comminuted fracture at the proximal right humerus. She was placed in a sling. We did speak with Dr. Ortega he recommends a walking boot, she can be weightbearing. She will be given a prescription for [place], RICE instructions were discussed with her. She was given referrals to podiatry and orthopedics. She does live at home with her who is able to help take care of her, her daughter is going to be staying with her all day tomorrow to help care for her. They feel comfortable with her being discharged home. Admission for rehab placement was discussed with them, they would like to be discharged home. Patient discharged in stable condition. Radiography X-Ray: Read by ED Physician Diagnostic Testing: Clinical Impression(s) from Imaging Studies Foot X-Ray 08/21/24 16:45 IMPRESSION: Nondisplaced transverse fracture base of the 5th metatarsal. Reading Location: [facility] Shoulder X-Ray 08/21/24 16:45 IMPRESSION: Mild displaced comminuted fracture greater tuberosity right humerus. Reading Location: [facility] <Dr. José Palencia MD - Last Filed: 08/21/24 17:32> MDM Radiography Diagnostic Testing: Clinical Impression(s) from Imaging Studies Foot X-Ray 08/21/24 16:45 IMPRESSION: Nondisplaced transverse fracture base of the 5th metatarsal. Reading Location: [facility] Shoulder X-Ray 08/21/24 16:45 IMPRESSION: Mild displaced comminuted fracture greater tuberosity right humerus. Reading Location: [facility] Treatment and Re-Evaluation Narrative: I have personally performed a face to face assessment of the patient and have reviewed the CEASAR Note. I performed a substantive portion of the visit including all aspects of the following. My valerio findings include: History is tripped and fell injuring right shoulder and left foot. No prodromal symptoms. Able to bear weight on her left foot prior to arrival here. The most pain is in her right shoulder. Denies any numbness or weakness. No head injury. Exam is limited range of motion of the right upper extremity, tenderness proximal humerus there is swelling. No obvious deformity. There is mild tenderness and some ecchymosis at the area of the left base of the fifth metatarsal, there is no deformity or ankle tenderness. No limited range of motion. Neurovascular intact distally all 4 extremities. Medical Decison Making three-view x-ray series shows a fracture across the base of the fifth metatarsal on the left foot on my interpretation, I discussed with Dr. Ortega with podiatry, who agrees this is more of an avulsion fracture than a Webster fracture and she can be weightbearing as tolerated in a boot and follow-up as an outpatient. Given that, patient wants to go home. On 4 view x-ray series of the right shoulder, on my interpretation there is a proximal humerus fracture. Treatment for this will likely be a sling but she can follow-up as an outpatient with orthopedics. She wants to do that. We discussed rehab and offered it, she declines and family states she lives with her and they will help as well. Other additions or changes: [None] Discharge Plan Triage Chief Complaint: Fall ED Midlevel Provider: Gabby Ugalde ED Provider: José Palencia Dx/Rx/DC Orders Clinical Impression: Closed fracture of right proximal humerus, Fall, Closed nondisplaced fracture of fifth left metatarsal bone Instructions: ED Fracture, Foot, ED Fracture, Upper Extremity Prescriptions: New hydrocodone-acetaminophen 5-325 mg tablet 1 tab PO Q6H 4 Days Qty: 16 0RF No Action amiodarone 200 mg tablet 200 mg PO DAILY Patient Comments: A-fib (DME) lancets [FreeStyle Lancets] 28 gauge misc See Rx Instructions .ROUTE .MEDSUPPLY Qty: 200 3RF Rx Instructions: check blood glucose daily for type 2 DM (DME) blood-glucose meter [FreeStyle Lite Meter] Kit See Rx Instructions .ROUTE .MEDSUPPLY Qty: 1 0RF Rx Instructions: As directed, check blood glucose daily for type 2 DM (DME) blood sugar diagnostic [FreeStyle Lite Strips] Strip See Rx Instructions .ROUTE .MEDSUPPLY Qty: 100 3RF Rx Instructions: check blood glucose daily for type 2 DM ferrous sulfate 325 mg (65 mg iron) tablet 325 mg PO QDAY Qty: 90 3RF lansoprazole [Prevacid] 30 mg capsule,delayed release(DR/EC) 30 mg PO DAILY Qty: 90 3RF ergocalciferol (vitamin D2) 1,250 mcg (50,000 unit) capsule 50,000 unit PO QMONTH Qty: 7 4RF mirtazapine 7.5 mg tablet See Rx Instructions .ROUTE .COMPLEX Qty: 90 1RF Dose Instruction: 7.5 MG ORALLY AT BEDTIME NEEDED FOR INSOMNIA Rx Instructions: 7.5 MG ORALLY AT BEDTIME NEEDED FOR INSOMNIA metformin 500 mg tablet extended release 24 hr 1,000 mg PO QPM Qty: 180 3RF rivaroxaban 15 mg tablet 15 mg PO DAILY@0600 Qty: 90 3RF Patient Comments: blood thinner carvedilol 12.5 mg tablet 12.5 mg PO BID Qty: 180 3RF amlodipine 10 mg tablet 10 mg PO DAILY Qty: 90 3RF losartan 50 mg tablet 50 mg PO DAILY Qty: 90 1RF sertraline 50 mg tablet 50 mg PO DAILY Qty: 90 1RF Primary Care Provider: Kp Guerra Referrals: Amado Ortega DPM [Med Staff - Active Staff] - 5-7 Days Kp Guerra MD [Primary Care Provider] - Liam Avila DO [Med Staff - Active Staff] - 5-7 Days Activity Restrictions/Additional Instructions: Follow-up with podiatry and orthopedics. Keep walking boot on when ambulating. Elevate the foot, ice both the foot and ankle several times daily to help with pain and swelling. Print Language: Arabic Disposition Disposition: Home, Self Care Discharge Date/Time: 08/21/24 18:07
--- NOTE | 2024-08-21 16:45 | RAD_ITS ---
PROCEDURE: SHOULDER MIN 2 VIEWS 08/21/2024 REASON FOR EXAM: PAIN, FALL TECHNIQUE: Three views of the right shoulder COMPARISON: None FINDINGS: Mildly displaced comminuted fracture greater tuberosity of the right humerus. No other fractures are noted. Mild-moderate degenerative changes of the acromioclavicular and glenohumeral joints. No focal soft tissue abnormality. RAD/Shoulder min 2 Views IMPRESSION: Mild displaced comminuted fracture greater tuberosity right humerus. Reading Location: [facility]
--- NOTE | 2024-08-21 16:45 | RAD_ITS ---
EXAM: Left foot radiographs CLINICAL HISTORY: Foot pain status post fall COMPARISON: None TECHNIQUE: Three-view left foot radiographs. FINDINGS: Diffuse osteopenia. Mild hallux valgus. Linear lucency base of the 5th metatarsal, compatible with an acute nondisplaced fracture. There is adjacent soft tissue swelling. [id number] multifocal osteoarthritis. Dense atherosclerotic calcifications. RAD/Foot min 3 Views IMPRESSION: Nondisplaced transverse fracture base of the 5th metatarsal. Reading Location: [facility]
[2024-08-21] MEDS: Morphine 4 MG/ML Syringe IM (17:05)
[2024-08-21] MEDS: Ondansetron ODT 4 MG Tablet PO (17:05)
[2024-08-21] MEDS: HYDROcodone Bitartrate/Apap 5/325 Tablet PO (17:54)
[2024-08-21 18:04] VITALS: BP 134/65; PULSE 73; RESP 18; TEMP 36.7; O2SAT 99
== END 2024-08-21 18:07 | disposition home or self-care (01) ==
PROVIDERS: Emergency Provider Emergency Medicine; PCP Internal Medicine; Visit Provider Emergency Medicine
DX: S42.351A Displaced comminuted fracture of shaft of humerus, right arm, initial encounter for closed fracture (principal); I11.0 Hypertensive heart disease with heart failure; I50.22 Chronic systolic (congestive) heart failure; I48.0 Paroxysmal atrial fibrillation; E11.9 Type 2 diabetes mellitus without complications; S92.355A Nondisplaced fracture of fifth metatarsal bone, left foot, initial encounter for closed fracture; E78.5 Hyperlipidemia, unspecified; Z79.01 Long term (current) use of anticoagulants; Y93.89 Activity, other specified; W19.XXXA Unspecified fall, initial encounter; Z79.899 Other long term (current) drug therapy; K21.9 Gastro-esophageal reflux disease without esophagitis; Z79.84 Long term (current) use of oral hypoglycemic drugs
CPT/HCPCS: 73030; 73630; 96372; 99284

== ENCOUNTER → 2025-02-13 | Outpatient (CLI) | payer OTHER, SELFPAY ==
[2025-02-13 10:05] LABS: Hematocrit 33.1 % (37-47); Hemoglobin 11.4 g/dL (12.0-15.0); Immature Granulocytes Count 0.020 X10^3/uL (0.0-0.0); Mean Corp Hgb Conc 34.4 g/dL (32-36); Mean Corpuscular Volume 90.9 fL (81-99); Mean Platelet Vol. 11.4 fl (6.2-12.0); NRBC Flagged by Analyzer 0 % (0-5); Platelet Count 147 K/mm3 (150-450); RBC Distribution Width CV 13.5 % (11.6-14.6); RBC Distribution Width SD 44.9 fl (35.1-43.9); Red Blood Count 3.64 M/mm3 (4.2-5.4); White Blood Count 4.8 K/mm3 (4.4-11.0)
[2025-02-13 10:46] LABS: AST(SGOT) 16 U/L (<=31); Alanine Aminotransfer ALT/SGPT 6 U/L (<=34); Albumin, Serum 4.5 g/dL (3.4-4.8); Alkaline Phosphatase 86 U/L (35-104); Anion Gap 13 (5-15); BUN 19 mg/dL (4-19); BUN/Creat Ratio 15.3 RATIO (10-20); Calcium,Total 9.5 mg/dL (7.6-11.0); Carbon Dioxide 23.5 mmol/L (21.0-32.0); Chloride 102 mmol/L (98-108); Globulin 3.3 g/dL (2.2-4.2); Glucose 160 mg/dL (70-99); Potassium 4.6 mmol/L (3.3-5.1); Vitamin D,25 Hydroxy 32.9 ng/mL (30-100)
== END | disposition home or self-care (01) ==
LOC: MTLAB 09:14
PROVIDERS: PCP Internal Medicine; Referring Provider Internal Medicine; Visit Provider Internal Medicine
DX: I10 Essential (primary) hypertension (principal); F41.9 Anxiety disorder, unspecified; F32.A Depression, unspecified; E55.9 Vitamin D deficiency, unspecified
CPT/HCPCS: 36415; 80053; 82306; 84439; 84443; 85025